=== PATIENT | male | born 1940 | race Caucasian/White ===

== ENCOUNTER 2024-04-07 13:24 | Inpatient (IN) | payer OTHER, SELFPAY ==
[2024-04-07] VITALS (9 sets, daily range): BP systolic 106–159; BP diastolic 54–129; BMI 28.4; BMI 27.7
[2024-04-07 08:54] LABS: % Basophils 0.3 % (0-2); % Immature Granulocytes 0.6 % (0-0.5); % Lymphocytes 19.4 % (20.5-51.1); % Neutrophils 67.7 % (42.2-75.2); Absolute Immature Granulocytes 0.1 10^3/uL (0-0.05); Absolute Lymphocytes 2.4 10^3/uL (1.2-3.4); Absolute Monocytes 1.5 10^3/uL (0.1-0.6); Absolute Neutrophils 8.3 10^3/uL (1.4-6.5); Hematocrit 46.3 % (39.0-52.0); Hemoglobin 16.1 g/dL (13.0-18.0); Mean Corp Hgb Conc. 34.8 g/dL (33.0-37.0); Mean Corpuscular Hgb 32.1 pg (27.0-31.0); Mean Corpuscular Volume 92.2 fL (80.0-94.0); Mean Platelet Volume 12.5 fL (7.4-10.4); Nucleated Red Blood Cells % 0 % (-); Platelet Count 163 10^3/uL (130-400); Red Blood Cell Count 5.02 10^6/uL (4.70-6.10); Red Cell Dist. Width 12.5 % (11.5-14.5); White Blood Cell Count 12.2 10^3/uL (4.8-10.8)
--- NOTE | 2024-04-07 09:07 | ED.GENMED ---
History of Present Illness
General
Chief Complaint: Weakness
Source: patient
Time Seen by Provider: 04/07/24 08:54
History of Present Illness
History of Present Illness:
83-year-old male presents to the emergency room for evaluation of weakness, fatigue, frequent falls. Patient began feeling unwell over the past 24 hours or so. Seems that he woke up yesterday not feeling well. His also has not been feeling
well and has flulike symptoms. 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 Patient attempted to drive to work yesterday but was pulled over by police due to driving erratically. The police made someone come pick him up. He went home and
had a fall in his bathroom that required his son to help him up. He was laid on the couch but again had a fall because his legs 'give out from under him'. He laid on the floor last night for an extended period of time until his son came this
morning and insisted he come to the hospital for evaluation. Patient denies any chest pain or shortness of breath. He does not believe he has a fever. He nor his has been tested for flu or COVID. He denies any nausea or vomiting. He admits
to decreased oral intake over the past 24 hours. No cough.
Phy Exam
Physical Exam
Physical Exam:
General: Awake, Alert, Oriented X3. No acute distress. Appears stated age, frail
Vitals: Afebrile, mildly tachycardic
Head: Atraumatic
Eyes: Pupils equal, EOMI
Throat: Airway intact, no exudates, dry mucosa
Neck: Trachea midline
Lungs: Clear and equal b/l
Heart: Regular rate, no murmurs
Abd: Soft, Nontender, No pulsatile mass
Neuro: Nonfocal
Skin: Warm, dry, no rash, seborrheic rash scalp
Extremities: pulses equal b/l, no edema
Course
Orders/Labs/Results
Orders:
Orders
04/07/24 08:37
Electrocardiogram (*1) Urgent
Reason for Study: Fatigue / Weakness
EKG- Treatment ONCE
04/07/24 08:43
Complete Blood Count/With Diff Urgent
04/07/24 09:05
Lactated Ringers [Lr] 1,000 ml IV BOLUS
CR Chest - 2 Views Urgent
Comment:
Reason For Exam: fatigue, frequent falls
04/07/24 09:06
CT Head W/o Iv Contrast Urgent
Comment:
Reason For Exam: frequent falls
04/07/24 09:07
Add On- LAB Urgent
Tests Added?: troponin
04/07/24 09:30
COVID-19 Antigen Urgent
Source: Nasal Swab
Influenza A+B Rapid Molecular Urgent
ANITHA Source: Nasal Swab
Specimen Description:
04/07/24 09:31
Comprehensive Metabolic Panel Urgent
Creatine Phosphokinase Urgent
Comment: ADD ON
04/07/24 10:35
Echo 2D MMode Color/Doppler [Echo 2D MMode Color/Doppler] Urgent
Reason for Study: ECG changes with prior bypass
Cardiology Consult: Walter Dash
04/07/24 10:43
Troponin I Routine
Comment: NEEDS TO BE COLLECTED
Urinalysis Reflex To Culture Urgent
Date Specimen was Collected: 04/07/24
Time Specimen was Collected: 09:07
Urine Microscopic Reflex Cult Urgent
Urine Culture Urgent
ANITHA Source: U
Specimen Description:
Date Specimen was Collected: 04/07/24
Time Specimen was Collected: 09:07
04/07/24 11:44
Aspirin Chewable [Low Strength Aspirin] 324 mg PO NOW STA
04/07/24 11:54
Electrocardiogram (*1) Urgent
Reason for Study: Fatigue / Weakness
EKG- Treatment ONCE
Insulin Aspart [NOVOLOG vial] 3 units SC NOW STA
04/07/24 12:00
0.9% Sodium Chloride 1000 ml [Nss] 1,000 ml IV 150 mls/hr
04/07/24 12:13
Add On- LAB Urgent
Tests Added?: creatinine kinase
04/07/24 12:14
Oseltamivir Phosphate [Tamiflu] 75 mg PO NOW STA
04/07/24 12:34
Admit/Transfer Patient As Directed
Co-Sign Provider:
Level of Care: Inpatient admission
Assign to:: Telemetry
Physician / Group: Nitza Winchester
Diagnosis: sepsis 2/2 Influenza
Reason for Telemetry: Chest Pain syndromes
Date to Stop Telemetry: 04/09/24
Time to Stop Telemetry: 11:00
Reason for Hospitalization: sepsis 2/2 Influenza
Expected length of stay greater than two midnights?: Yes
ELOS- Estimated Length of Stay in days: 3
I certify the patient meets the requirements for IP care: Yes
PRN Pain Medication Management As Directed
May give lesser potent ordered pain med per pt: Yes
preference::
Protocol:: Medication orders for pain may be administered in a
manner that supports deferring to patient preference
when the pt is:
- Requesting an ordered lesser potent pain medication.
Least to most potent pain medications are defined
as: acetaminophen < NSAID < tramadol < opioids
(morphine, oxycodone, hydromorphone).
- Requesting a lesser dose of the same medication IF
ORDERED.
- Requesting a less intrusive route of administration
if both routes are prescribed by the provider (PO <
IV).
04/07/24 12:36
Code Status As Directed
Resuscitation Status: Do not resuscitate
Reached after discussion with pt or family/Healthcare POA: Yes
04/07/24 12:37
DNR Bracelet Application ONCE
04/07/24 12:52
Heparin Protocol- PTT Orders As Directed
PTT per Heparin protocol: -Obtain CBC and baseline PTT - if not already collected.
-Obtain PTT 6 hours from start of infusion. Then, every 6 hours until 2 consecutive
PTT's are therapeutic. Then, PTT Daily.
-With each rate change, obtain PTT every 6 hours until 2 consecutive PTT's are
therapeutic. Then, PTT Daily.
Notify MD As Directed
Notify physician if: PTT is greater than or equal to 200.
04/07/24 13:00
PTT Urgent
Heparin 14539 Units/250 ml 25,000 units in 250 ml IV PER PROTOCOL
Weight to be used for heparin protocol in kilograms (kg):: 84.8
Protocol:: Cardiac Tx/Acute Coronary
PTT Goal Range to be used:: PTT 73 to 111 seconds
Order type:: Initial
INITIAL Infusion Dose (UNITS/KG/hr) & then follow protocol:: 12 units/kg/hr
Infusion Dose in UNITS/hr & then follow protocol (UNITS/hr):: 1,000
INFUSION RATE in mL/hr & then follow protocol (mL/hr):: 10
PTT less than or equal to 64 seconds:: Increase rate by 200 units/hr (+ 2 mL/hr)
PTT 64.1 to 72.9 seconds:: Increase rate by 100 units/hr (+ 1 mL/hr)
PTT 73 to 111 seconds:: Target Range. No change in rate.
PTT 111.1 to 130.9 seconds:: Decrease rate by 100 units/hr (- 1 mL/hr)
PTT 131 to 199.9 seconds:: HOLD for 1 hr. Then decrease rate by 200 units/hr (- 2 mL/hr)
PTT greater than or equal to 200 seconds:: HOLD for 2 hrs & Notify Provider. Then decrease by 200 units/hr (-
2 mL/hr)
Lab follow-up:: Each change, PTT q6h until 2 consecutive are therapeutic. Then PTT
daily.
04/07/24 14:23
Lactate Level [Lactic Acid] Urgent
Troponin I Q6H
04/07/24 14:45
Electrocardiogram (*1) Routine
Reason for Study: CAD
Cardiology Consult: Walter Dash
04/09/24 06:00
Complete Blood Count/No Diff IN AM
Comment: Notify MD if platelet count is <130,000 or decreases by 50% from baseline
04/09/24 11:00
DC Protocol for Telemetry ONCE
04/10/24 06:00
Complete Blood Count/No Diff IN AM
Comment: Notify MD if platelet count is <130,000 or decreases by 50% from baseline
04/11/24 06:00
Complete Blood Count/No Diff IN AM
Comment: Notify MD if platelet count is <130,000 or decreases by 50% from baseline
04/12/24 06:00
Complete Blood Count/No Diff IN AM
Comment: Notify MD if platelet count is <130,000 or decreases by 50% from baseline
04/13/24 06:00
Complete Blood Count/No Diff IN AM
Comment: Notify MD if platelet count is <130,000 or decreases by 50% from baseline
04/14/24 06:00
Complete Blood Count/No Diff IN AM
Comment: Notify MD if platelet count is <130,000 or decreases by 50% from baseline
04/15/24 06:00
Complete Blood Count/No Diff IN AM
Comment: Notify MD if platelet count is <130,000 or decreases by 50% from baseline
04/16/24 06:00
Complete Blood Count/No Diff IN AM
Comment: Notify MD if platelet count is <130,000 or decreases by 50% from baseline
Abnormal Lab Results
04/07/24 04/07/24 04/07/24
08:43 09:31 10:43
WBC 12.2 H 10^3/uL
(4.8-10.8)
MCH 32.1 H pg
(27.0-31.0)
MPV 12.5 H fL
(7.4-10.4)
Abs Immat Gran (auto) 0.1 H 10^3/uL
(0-0.05)
Absolute Neuts (auto) 8.3 H 10^3/uL
(1.4-6.5)
Absolute Monos (auto) 1.5 H 10^3/uL
(0.1-0.6)
Immature Gran % 0.6 H %
(0-0.5)
Lymphocytes % 19.4 L %
(20.5-51.1)
Monocytes % 12.0 H %
(1.7-9.3)
Carbon Dioxide 16 L mmol/L
(22-30)
BUN 24 H mg/dl
(9-20)
Glucose 330 H mg/dl
(70-99)
AST 217 H U/L
(17-59)
ALT 70 H U/L
(0-50)
Creatine Kinase 9753 H U/L
(55-170)
Troponin I 1.360 H* ng/ml
Ur Occult Blood Reflex 4+ A
(Negative)
Urine Bacteria (Reflex) Many A
(Negative)
Urine Glucose 4+ A
(Negative)
Urine Albumin (Reflex) 3+ A
(Neg - Trace)
POC Glucose
04/07/24
12:32
WBC
MCH
MPV
Abs Immat Gran (auto)
Absolute Neuts (auto)
Absolute Monos (auto)
Immature Gran %
Lymphocytes %
Monocytes %
Carbon Dioxide
BUN
Glucose
AST
ALT
Creatine Kinase
Troponin I
Ur Occult Blood Reflex
Urine Bacteria (Reflex)
Urine Glucose
Urine Albumin (Reflex)
POC Glucose 287 H mg/dl
(70-99)
04/07/24 08:43
04/07/24 09:31
Vital Signs
Initial and Last Documented VS:
Initial Vital Signs
Temp Pulse Resp BP Pulse Ox
98.1 F 103 16 125/83 98
04/07/24 08:35 04/07/24 08:35 04/07/24 08:35 04/07/24 08:35 04/07/24 08:35
Last Documented Vital Signs
Temp Pulse Resp BP Pulse Ox
98.1 F 94 17 127/72 94
04/07/24 08:35 04/07/24 11:00 04/07/24 11:00 04/07/24 11:00 04/07/24 11:00
MDM/Problems Addressed
Differential Diagnosis Includes:
UTI, pneumonia, influenza, COVID
MDM/Problems Addressed:
Patient presents with generalized weakness, lethargy. Symptoms began within the past 24 hours. Workup here shows mildly elevated white blood cell count. Chemistry show a mildly elevated anion gap with dehydration based on elevated BUN and based
on his physical exam suggesting significant dehydration. Patient's glucose elevated at 330. Small dose of insulin given to control elevated glucose. Patient's EKG shows an anterior wall KS with LVH. There may be some elevated ST segments
compared to EKG that we have on record here which is quite old. His presentation does not match that of a acute ST segment elevation KS. Therefore STEMI alert was not called. I discussed the patient's presentation EKG with cardiology. They came
to evaluate the patient. Patient be hospitalized for IV fluids, supportive care, further cardiac evaluation
*Radiology
Radiology exam reviewed: preliminary read by ED provider (No acute abnormality based on my chest x-ray) and radiology read reviewed
*Pulse Oximetry
Patient hypoxic: no
*EKG
Interpreted by ED Provider?: Yes
Heart Rate: 101
Rate: tachycardiac
Rhythm: sinus
QRS Pattern: left vent hypertrophy and other (Previous anterior wall KS)
Ischemia: other (ST changes noted in the anterior leads which do appear somewhat different than previous EKG. No reciprocal change)
*Critical Care Note
Total Time (30-74mins, 75-104mins- exclusive of procedures): 35 min
comment:
Critical care statement: A total of 35 minutes of critical care time was provided for this patient. This includes management of unstable vital signs, evaluation of the patient at bedside, reviewing the patient's pertinent medical records, discussion
with consultants, review of old EKGs and review of pertinent medical records. This time with separate from time utilized to perform the aforementioned documented procedures
ED Attending Note
-
Portions of this chart may have been created with voice recognition software.� Occasional wrong word or��sound alike� substitutions may have occurred due to the inherent limitations of voice recognition software.
Discharge Plan
Departure
Patient Disposition: Admit
Date of Disposition: 04/07/24
Time of Disposition: 11:47
Admit to: IVU
Presentation/result/management discussed w/ accepting MD/DO: Hospitalist
Condition: Serious
Discharge Problem:
Influenza A, Elevated troponin
Interventions
Interventions:
*Risk Screen - Suicide Last Done: 04/07/24 08:35
*Neglect/Abuse Screening Last Done: 04/07/24 08:35
ED- Cardiac Assessment Last Done: 04/07/24 11:03
ED- Neurological Assessment Last Done: 04/07/24 11:03
ED- Pulmonary Assessment Last Done: 04/07/24 11:03
[2024-04-07 09:53] LABS: ALT (SGPT) 70 U/L (0-50); AST (SGOT) 217 U/L (17-59); Albumin 4.3 g/dl (3.5-5.0); Alkaline Phosphatase 75 U/L (38-126); Blood Urea Nitrogen 24 mg/dl (9-20); Calcium 8.7 mg/dl (8.4-10.2); Carbon Dioxide 16 mmol/L (22-30); Chloride 102 mmol/L (98-107); Glucose 330 mg/dl (70-99); Potassium 4.4 mmol/L (3.5-5.1); Sodium 138 mmol/L (135-145); Total Bilirubin 1.2 mg/dl (0.2-1.3); Total Protein 6.8 g/dl (6.3-8.2); eGFR 59.63
[2024-04-07] MEDS: LR 1000 IV (09:55)
[2024-04-07 09:56] LABS: COVID-19 Antigen Negative (Negative)
--- NOTE | 2024-04-07 10:01 | CON.CAR ---
Consultation
Consultation Request
Requesting Provider: Dr. Ananda Hutchinson
Performing Provider: Dr. Walter Dash
Reason for Consultation: Abnormal EKG with troponin elevation
Medical History
-
Chief Complaint: Weakness and influenza A positive
History of Present Illness:
This is an 83-year-old gentleman with a prior history of coronary artery disease and coronary artery bypass grafting on 11/10/2008 with JEFFERSON-LAD, [id number]. He typically follows with Dr. Walter Campos and was last seen in the office several
months ago. He presents now with complaints of profound weakness. Mr. Hung was last seen by Dr. Campos several weeks ago and reported that he had a fall within a few weeks of that office visit. He appeared to be more unsteady with his gait.
He now presents with a 24-48-hour history of marked malaise. His is currently influenza A positive. He came to the emergency department after 911 was called by his son. He apparently had not been feeling that great yesterday but had driven
to work and was swerving the car all over the road. He was picked up by the police with concern of intoxication. He was taken to the police department and released with family members to home. At approximately 4:30 PM on the day prior to
admission he fell in the bathroom and was too weak to stand. His son was called and with a lot of assistance they were able to move him from the bathroom to a couch where he stayed for the remainder of the afternoon into the evening. At some point
nursing aides took him upstairs. At the top of the stairs he became so weak he fell to the ground and his actually brought him a pillow and blanket. He laid on the ground most of the night only because he was too weak. The next morning
family members were again called. With much assistance they were able to get the Mr. Deny hurtado down the stairs and onto a an ambulance gurney. He was brought to [facility] for further evaluation.
The patient denies any chest discomfort. He denies any cough cold or flulike symptoms although his is currently ill with influenza A and he test positive for influenza. He has not had much of an appetite. No nausea vomiting or diarrhea.
Subjective fevers per the son
-01/23/2023: Echo: LV: EF 53%. No WMA. Mild concentric LVH. RV: Low normal function, LA: Normal, RA: Normal, MV: Dense posterior MAC with trace MR, AV: Trace AI. Calcified and trileaflet. TV: Normal
-11/24/2019: Echo: LV: Normal size and function. EF 51%. Mild concentric LVH. RV: Normal, LA: Normal, RA: Normal, MV: No MR, AV: Thickened. No AI. TV: No TR
Laboratory data:
Troponin 1.36 ng/mL, CPK 9753
AST/ALT 217/70,
Glucose: 330, BUN/creat: 24/1.2, K: 4.4
WBC: 12.2, H/H: 16.1/46.3, Plts: 163,
Urine: Yello 4+ blood, Many bacteria
COVID (-)
Influenza A:
Past Medical History:
-Coronary artery disease with history of coronary artery bypass grafting in 2008
-Paroxysmal atrial fibrillation
-History of an atrial tachycardia
-Hypertension
-Remote history of stroke in 2019 with concern for cardioembolic etiology
-Prostate cancer
-Ambulatory dysfunction with recent falls
Review of Systems: Patient minimizes symptoms. He reports an overwhelming sense of of fatigue and leg weakness keeping him from walking. He denies any chest discomfort. No cough or flulike symptoms although his son reports some sweatiness when
they moved him from the bathroom floor yesterday afternoon. He refused to come to the emergency department at that time. No recent GI illness and specifically denies any nausea, vomiting, constipation, or diarrhea. He states that he has been
compliant with medications
Social History
Tobacco: Non-Smoker
Alcohol: None
Drug: None
Personal:
Living: With Family
Employment: Other (Still working at a significantly reduced)
Family History
Family History: Reviewed & Not Pertinent
Allergies / Home Medications
Allergy/AdvReac Type Severity Reaction Status Date / Time
No Known Allergies Allergy Verified 04/07/24 08:36
�Medication �Instructions �Recorded �Confirmed �Type
Fish Oil 1 tab DAILY 11/07/08 11/07/08 History
Multivitamin 1 tab DAILY 11/07/08 11/07/08 History
folic acid-vit B6-vit B12 2.5 1 tab PO DAILY 11/07/08 11/07/08 History
mg-25 mg-2 mg tablet (WesTab Max)
glyburide 5 mg tablet 5 mg PO DAILY 11/07/08 11/07/08 History
lisinopril 10 mg tablet 10 mg PO DAILY 11/07/08 11/07/08 History
metformin 500 mg tablet 500 mg PO BID 11/07/08 11/07/08 History
(Glucophage)
sitagliptin phosphate 100 mg 100 mg PO DAILY 11/07/08 11/07/08 History
tablet (Januvia)
tamsulosin 0.4 mg capsule 0.4 mg PO DAILY 11/07/08 11/07/08 History
Aspirin 162 mg PO DAILY 04/23/09 04/23/09 History
Centrum Silver DAILY 04/23/09 04/23/09 History
hydrocodone 5 mg-acetaminophen 325 1 ea PO Q6HPRN PRN pain #12 tabs 07/26/19 Rx
mg tablet ([place])
sennosides 8.6 mg-docusate sodium 1 tab-cap PO HS #7 tabs 04/16/22 Rx
50 mg tablet (Senna-S)
Review of Systems
-
History Source: Patient
Constitutional: Fatigue
EENT: No Symptoms
Respiratory: No Symptoms
Cardiac: No Symptoms
Abdomen/GI: No Symptoms
: No Symptoms
Skin: No Symptoms
Neurological: No Symptoms and Other (Profound weakness but nothing focal)
Physical Exam
Vital Signs
Temp Pulse Resp BP Pulse Ox
98.1 F 103 16 125/83 98
04/07/24 08:35 04/07/24 08:35 04/07/24 08:35 04/07/24 08:35 04/07/24 08:35
Lab Results
04/07/24 08:43
04/07/24 09:31
GEN: Patient was seen lying in bed. He is conversant and appears appropriate and oriented x 3. No acute distress
HEENT: NC/AT, sclera are anicteric
NECK: Supple. JVP was difficult to assess
LUNGS: Clear anterior laterally
CV: Regular rate and rhythm. Normal S1/S2. Murmur: Soft murmur noted at upper sternal border and lower left sternal border
ABD : Soft, NT, ND, Bowel sounds are present.
EXT: No CCE
NEURO: No focal neurologic deficits
Impression / Plan
-
IMPRESSION:
-Elevated troponin with no chest discomfort: Likely Non ME troponin elevation.
-Known coronary artery disease with prior history of coronary artery bypass grafting in 2008
-Influenza A
-Ambulatory dysfunction. He has fallen and was on the ground for much of yesterday. He was confused and pulled over by police when driving to work after he was noted to be swerving all over the road. At home was so fatigued that he could not walk
any further and laid down on the ground until his son called 911 this morning. CPKs are elevated.
-Diabetes
RECOMMENDATION
-Trend serial troponins
-Will obtain echocardiogram
-Further management decisions will be made after the echocardiogram is completed.
-He is influenza A positive. I am not sure that this accounts for his profound weakness. He had been found swerving all over the road and was actually stopped by police under the suspicion of intoxication. He was released to family member and was
so weak that he spent much of his day yesterday and last evening on the ground. He did have a fall prior to this within a few weeks of seeing Dr. Campos in the office. Will need to review medications and blood pressures while he is here in the
hospital.
Data Reviewed
-
EKG: Tracing Personally Visualized and interpreted
Ultrasound: Image Personally Visualized and interpreted
Labs: Labs Reviewed by me
Old Records: Reviewed
[2024-04-07 11:02] LABS: Urine Albumin 3+ (Neg - Trace); Urine Bilirubin Negative (Negative); Urine Character Clear (Clear); Urine Color Yellow; Urine Glucose 4+ (Negative); Urine Leukocyte Negative (Negative); Urine Nitrite Negative (Negative); Urine Specific Gravity 1.025 (<1.030); Urine Urobilinogen Negative (Neg - 1+)
[2024-04-07 11:13] LABS: Urine Occult Blood 4+ (Negative)
[2024-04-07 11:23] LABS: Urine Bacteria Many (Negative); Urine Red Blood Cell 0-2 /HPF (0-2)
[2024-04-07 11:24] LABS: Urine Granular Cast 0-2 /LPF (0); Urine Hyaline Cast 0-2 /LPF (0-2); Urine Squamous Cell 0-2 /LPF (Few)
[2024-04-07] MEDS: LOW STRENGTH ASPIRIN 324 MG PO (11:53)
--- NOTE | 2024-04-07 12:07 | HPS.HSE ---
Family Physician
-
Family Physician: Walter Goodman
Chief Complaint
-
weakness and cough
History of Present Illness
Mr. Aubrey Hung is a 83 yo man with hx CAD s/p CABG 2008 and PCI, robotic prostatectomy 2015, HTN, HLD presents to the ER with fatigue, weakness and falls.
Symptoms started yesterday morning. He attempted to drive to work but was pulled over by police for driving erratically. Per patient he was avoiding pot holes. He was asked to be picked up and after arriving home he had a fall stating his 'legs
gave out from under him'. He was climbing up the stairs and once he got to the top he fell. He did not hit his head. He came to the ER this morning.
He denies fevers. + cough/congestion. No chest pain. No shortness of breath. No nausea/vomiting/diarrhea. He has had decreased oral intake stating last thing he took in was chocolate milk last night.
His has similar symptoms. 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
Medical History
Past Medical History
Past Medical History: Reports Other (x CAD s/p CABG 2008 and PCI, robotic prostatectomy 2015, HTN, HLD)
Past Surgical History: Reports Cardiac
Social History
Tobacco: Other (former cigar use)
Alcohol: None
Family History
Family History: Not pertinent
Allergies / Home Medications
Allergies reflects when Allergies were last updated in [email or web address].
Home Medications with original date entered in [email or web address]
Allergy/Medication List:
Allergies
Allergy/AdvReac Type Severity Reaction Status Date / Time
No Known Allergies Allergy Verified 04/07/24 08:36
Home Medications
glyburide 5 mg tablet 5 mg PO BID@0800,1700 11/07/08
Brain Supplement 1 dose PO DAILY 04/07/24
apixaban 5 mg tablet (Eliquis) 5 mg PO BID 04/07/24
atorvastatin 80 mg tablet 80 mg PO DAILY 04/07/24
bisacodyl 5 mg tablet,delayed release (Dulcolax (bisacodyl)) 10 mg PO DAILYPRN PRN constipation 04/07/24
carvedilol 6.25 mg tablet 6.25 mg PO BID 04/07/24
dulaglutide 4.5 mg/0.5 mL subcutaneous pen injector (Trulicity) 4.5 mg SC TU 04/07/24
fexofenadine 60 mg tablet 60 mg PO DAILY 04/07/24
metformin 500 mg tablet,extended release 24 hr 500 mg PO BID@0800,1700 04/07/24
therapeutic multivitamin 1 tab PO DAILY 04/07/24
Review of Systems
-
History Source: Patient
A 12 point ROS was completed and negative except as noted: Yes
Physical Exam
Vital Signs
Vital Signs
Temp Pulse Resp BP Pulse Ox
98.1 F 94 17 127/72 94
04/07/24 08:35 04/07/24 11:00 04/07/24 11:00 04/07/24 11:00 04/07/24 11:00
Physical Exam
General: No Apparent Distress and Conversant
HEENT: PERRLA
Respiratory: Clear; No Wheezes or Rales
Cardiac: S1/S2, Regular Rhythm and Murmur
GI: Soft and Non Tender
Musculoskeletal: No Edema
Skin: Warm and Dry; No Rash
Neuro: AO x 3
Psych: Calm
Laboratory Results
-
04/07/24 08:43
04/07/24 09:31
Laboratory Results
Total Bilirubin 1.2 mg/dl (0.2-1.3) 04/07/24 09:31
AST 217 U/L (17-59) H 04/07/24 09:31
ALT 70 U/L (0-50) H 04/07/24 09:31
Alkaline Phosphatase 75 U/L (38-126) 04/07/24 09:31
Troponin I 1.360 ng/ml H* 04/07/24 10:43
Data Reviewed
-
Diagnostic Radiology: Report Reviewed by me
Lab Data: Labs Reviewed by me
Impression/Plan
-
Mr. Aubrey Hung is a 83 yo man with hx CAD s/p CABG 2008 and PCI, robotic prostatectomy 2015, HTN, HLD presents to the ER with fatigue, weakness and falls.
Triage VS: T 98.1, P103, RR 16, BP 125/83, SpO2 98%
LABS: WBC 12.2, Hg 16.1, PLT 163, Na 138, K+ 4.4, CO2 12, BUN 24, Cr 1.2, glucose 330, T. Bili 1.2, AST 217, ALT 70
MAR: Asa 324, insulin 3 units, LR 1L bolus, NS @ 150
Covid negative
Influenza Positive
CXR
IMPRESSION:
No acute cardiopulmonary process.
HEAD CT
IMPRESSION:
There are no acute intracranial abnormalities.
There is old 9 mm lacunar infarct involving the neck of the caudate and genu of the internal capsule on the right
There is moderate diffuse cortical atrophy with moderate nonspecific white matter changes as described above.
Influenza A
Sepsis 2/2 Above
Weakness 2/2 Above
-admit to telemetry
-start Tamilfu (decrease dosing tomorrow if necessary based on kidney function)
-no e/o superimposed pneumonia
-NS @ 100
-trend Lactate
-PT/OT
likely non-Ischemic [place] Troponin Elevation
-patient without chest pain
-TTE ordered by cardiology
-trend Troponin
-*patient did not take his Eliquis this AM, will start heparin gtt without bolus
-formal Cardiology consult
Paroxysmal Atrial Fibrillation
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
-hold Eliquis and start heparin gtt as above
Elevated Liver Enzymes
-add on CK
-likely in setting of flu/sepsis
-trend
CAD s/p CABG
-heparin gtt as above
-hold statin with elevated liver enzymes
Hyperglycemia
Diabetes
-s/p aspart in ER
-F/U A1c tomorrow AM
-hold [employer] SALES [employer] Metformin, Trulicity
-[employer] Glyburide 5mg PO BID
-ISS low
-diabetic diet
Essential HTN
-rn clinical trials Coreg with hold parameters
Hyperlipidemia
-hold Statin as above
DVT PPx - heparin gtt
DNR - confirmed on admission
76 minutes spent on patient care
[2024-04-07 12:33] LABS: Glucose - Point of Care 287 mg/dl (70-99)
[2024-04-07] MEDS: NOVOLOG vial 3 UNITS SC (12:33)
[2024-04-07 13:26] LABS: APTT 32.4 Sec (23.4-35.0)
[2024-04-07] MEDS: TAMIFLU 75 MG PO (13:27)
[2024-04-07] MEDS: NSS 1000 IV ×2 (13:29→17:58)
[2024-04-07] MEDS: HEPARIN 25000 UNITS/250 ML IV (13:33)
[2024-04-07 13:35] LABS: Creatine Phosphokinase 9753 U/L (55-170)
[2024-04-07 15:28] LABS: Lactic Acid 1.7 mmol/L (0.7-2.0)
[2024-04-07] MEDS: NOVOLOG FLEXPEN-LOW RESISTANCE 1 UNITS SC (19:59)
[2024-04-07] MEDS: MICRONASE PO (20:06)
[2024-04-07 20:07] LABS: Glucose - Point of Care 181 mg/dl (70-99)
[2024-04-07] MEDS: COREG 6.25 MG PO (20:28)
[2024-04-07] MEDS: TAMIFLU 30 MG PO (20:28)
[2024-04-07 20:41] LABS: APTT 82.5 Sec (23.4-35.0)
[2024-04-07 20:56] LABS: Troponin I 0.949 ng/ml
[2024-04-08] VITALS (9 sets, daily range): BP systolic 112–140; BP diastolic 54–89; PULSE 69–84; O2SAT 93
[2024-04-08 03:55] LABS: % Basophils 0.1 % (0-2); % Immature Granulocytes 0.3 % (0-0.5); % Lymphocytes 32.3 % (20.5-51.1); % Neutrophils 56.3 % (42.2-75.2); Absolute Lymphocytes 2.8 10^3/uL (1.2-3.4); Absolute Neutrophils 4.8 10^3/uL (1.4-6.5); Hematocrit 40.2 % (39.0-52.0); Mean Corp Hgb Conc. 34.8 g/dL (33.0-37.0); Mean Platelet Volume 12.5 fL (7.4-10.4); Nucleated Red Blood Cells % 0 % (-); Platelet Count 128 10^3/uL (130-400); Red Blood Cell Count 4.37 10^6/uL (4.70-6.10); Red Cell Dist. Width 12.4 % (11.5-14.5); White Blood Cell Count 8.6 10^3/uL (4.8-10.8)
[2024-04-08 04:07] LABS: APTT 100.3 Sec (23.4-35.0)
[2024-04-08 04:34] LABS: Troponin I 0.671 ng/ml
[2024-04-08 05:40] LABS: ALT (SGPT) 74 U/L (0-50); AST (SGOT) 170 U/L (17-59); Albumin 3.5 g/dl (3.5-5.0); Alkaline Phosphatase 77 U/L (38-126); Blood Urea Nitrogen 28 mg/dl (9-20); Calcium 8.8 mg/dl (8.4-10.2); Carbon Dioxide 20 mmol/L (22-30); Chloride 104 mmol/L (98-107); Direct Bilirubin 0.4 mg/dl (0.0-0.4); Estimated Creatinine Clearance 50 ml/min; Glucose 255 mg/dl (70-99); Magnesium 2.1 mg/dl (1.6-2.3); Potassium 3.9 mmol/L (3.5-5.1); Sodium 135 mmol/L (135-145); Total Bilirubin 1.2 mg/dl (0.2-1.3); eGFR > 60.00
[2024-04-08 07:06] LABS: Glucose - Point of Care 258 mg/dl (70-99)
--- NOTE | 2024-04-08 08:05 | W.PN.HOSP.TC ---
Addendum entered and electronically signed by Jim Brandon MD 04/08/24 15:26:
Influenza A
-Continue Tamiflu x 5 days
-Antitussive
-Antipyretic
NSTEMI
-Trop elevation now downtrending
-2d echo with wma - hypokinentic/akinetic gutiérrez
-Stop eliquis
-Start hep gtt
-LHC on Thursday (04/11)
-Tele monitor
-Cards
Acute rhabdo secondary to flu A
-IV fluids
-Daily CK
-PT OT
Transaminitis
-Secondary to rhabdo expect to improve follows LFTs
Cad s/p CABG
-hep gtt
-hold statin due to transaminitis
DM c/b hyperglycemia
-A1c 9.1
-Long and short acting insulin
-Accuchecks
-BG 140-180
-CCdiet
CVA
-On statin and eliquis as an outpatient
-Both held for various reasons
--1) Eliquis held for Hep gtt
--2) Statin held for transaminitis
Original Note:
Today's Communication/Plan
-
;/
Assessment / Plan
Assessment / Plan
Assessment/plan
#Sepsis POA secondary to influenza virus
-Continue renally dosed Tamiflu
-Lactate normal
-Chest x-ray�no acute cardiopulmonary process
-PT/OT
#Nonischemic myocardial injury
-No episodes of chest pain
-Echocardiogram- The apical gutiérrez are severely hypokinetic-akinetic with an estimated ejection fraction of 40-45%.
-Troponin peaked
-Cardiology following
#CAD s/p CABG 2008 and PCI
-Echo 04/07- When compared to the most recent echocardiogram from 11/24/2019, a new regional wall motion abnormality is noted at the left ventricular apex which is severely hypokinetic to akinetic. The estimated ejection fraction is 40-45%.
-Cardiology following
-With new findings on echo, plan for cardiac catheterization 04/11
-Heparin gtt
#Paroxysmal atrial fibrillation
-Continue Coreg
-Hold Eliquis, heparin gtt
#Rhabdomyolysis
#Transaminitis
-Etiology likely in the setting of influenza viral infection
-Trend LFTs
#T2DM
-HbA1c 9.1
-Start NovoLog 5 units, Lantus 10 units
-Coverage with sliding scale insulin
-Hold home oral agents
#Essential hypertension
-Continue on Coreg
#Hyperlipidemia
-Hold statin due to elevated LFTs
DVT prophylaxis-heparin gtt
CODE STATUS-DNR
Anticipated Discharge: > 48 hours
Subjective/Interval History
-
Patient seen and examined at bedside. He denied acute complaints of chest pain, shortness of breath, palpitation, abdominal tenderness. He denies myalgia, arthralgia. He denies cola colored urine. He states his lower extremity weakness has been
present since a traumatic incident that happened a few years ago after a horse kicked his legs. Overall today, he has no acute complaints
Objective Data
-
Labs:
Laboratory Results
04/07/24 04/08/24
20:17 03:43
WBC 8.6
Hgb 14.0
Hct 40.2
Plt Count 128 L D
APTT 82.5 H 100.3 H
Sodium 135
Potassium 3.9
Chloride 104
Carbon Dioxide 20 L
BUN 28 H
Creatinine 1.1
Glucose 255 H
Calcium 8.8
Total Bilirubin 1.2
AST 170 H
ALT 74 H
Alkaline Phosphatase 77
Vital Signs:
Vital Signs
Temp Pulse Resp BP Pulse Ox
98.1 F 90 17 132/72 97
04/08/24 03:30 04/08/24 03:30 04/08/24 03:30 04/08/24 03:30 04/08/24 03:30
I&O
04/07/24 04/08/24 04/09/24
06:59 06:59 06:59
Intake Total 1600 / 1600
Output Total 600 / 600
Balance 1000 / 1000
Review of Systems
-
All other systems: Reviewed and negative (Except as documented)
Physical Exam
-
General: Well Developed, Well Nourished and No Apparent Distress
Respiratory: Clear to Auscultation
Cardiac: Regular Rhythm and S1/S2
GI: Soft, Nontender, Nondistended and Normal Bowel Sounds
Musculoskeletal: No Edema
Neuro: Awake and Alert
[2024-04-08 09:09] LABS: Creatine Phosphokinase 5910 U/L (55-170)
[2024-04-08] MEDS: NSS 1000 IV (09:20)
[2024-04-08] MEDS: ELIQUIS 5 MG PO (09:20)
[2024-04-08] MEDS: MICRONASE 5 MG PO (09:21)
[2024-04-08] MEDS: COREG 6.25 MG PO ×2 (09:21→20:43)
[2024-04-08] MEDS: CLARITIN 10 MG PO (09:21)
[2024-04-08] MEDS: TAMIFLU 30 MG PO ×2 (09:21→20:44)
[2024-04-08] MEDS: LOW STRENGTH ASPIRIN 81 MG PO (09:21)
[2024-04-08] MEDS: NOVOLOG FLEXPEN-LOW RESISTANCE 3 UNITS SC (09:21)
[2024-04-08] MEDS: LIPITOR PO (09:26)
--- NOTE | 2024-04-08 09:27 | W.PN.CARDCBS ---
Today's Communication / Plan
-
Cardiac catheterization on Thursday
Impression / Plan
-
IMPRESSION:
Influenza A
CAD status post CABG
Non-ST segment elevation [place] versus non-ACS troponin elevation versus Takotsubo syndrome
Paroxysmal atrial fibrillation and atrial tachycardia
Hypertension
History of stroke 2019
Prostate cancer
Hypercholesterolemia
Mild rhabdomyolysis
Echo 04/07/2024: EF 40-45%, apex is hypo to akinetic, normal RV, normal atria, mild mitral regurgitation, aortic sclerosis, normal pulmonary artery pressure, apical wall motion abnormality is new and was 50%
Plan:
At present he is recovering from his influenza A, and he looks well from that standpoint.
His cardiac exam is relatively unremarkable at this time. His troponin peaked at only approximately 1.6.
However, he has a clear-cut new wall motion abnormality compared to his prior echo with an EF that is now 40 to 45% and previously had been 50%. In addition, he has dramatic EKG changes despite the presence of an intraventricular conduction
delay/left bundle branch block.
It is conceivable that this is Takotsubo but with 15-year-old bypass grafts, it is also possible that his coronary artery anatomy has changed dramatically.
He is currently on aspirin and apixaban. Apixaban to be discontinued and will start heparin.
Continue carvedilol.
Clinical summary 83-year-old man with remote CABG in 2008 admitted with influenza A, weakness and malaise, CPK is 9750 after laying on the floor with troponin of 1.36 and AST of 217, has history of paroxysmal A-fib and atrial tachycardia with remote
CVA, hypertension and prostate cancer. His ejection fraction has dropped from 50% to 40-45% and he has a new apical wall motion abnormality
Progress Note - Clinical Exercise Specialist
Subjective
Date of Service: April 08, 2024:
Medications: Aspirin 81 mg a day, Claritin, glipizide, carvedilol 6.25 twice daily, apixaban 5 mg twice daily, atorvastatin 80 mg a day, Tamiflu
124/74, pulse 83, resp rate 18, afebrile, weight is 85 kg, stable, head neck exam unremarkable, lungs are clear, regular rate and rhythm, mild MR, abdomen benign, extremities without clubbing cyanosis or edema
EKG sinus rhythm, left bundle branch block, deep anterior T wave changes, PVCs, left axis deviation, prolonged QT
Hemoglobin is 14 white count is 8.6, platelets are 128, BUN and creatinine 28 and 1.1, peak troponin was 1.36, now 0.671, CPK has dropped to 5910
Chest x-ray shows no active disease
Objective
Labs:
04/08/24 03:43
04/08/24 03:43
Labs
Hgb 14.0 g/dL (13.0-18.0) 04/08/24 03:43
Hct 40.2 % (39.0-52.0) 04/08/24 03:43
Plt Count 128 10^3/uL (130-400) L D 04/08/24 03:43
APTT 100.3 Sec (23.4-35.0) H 04/08/24 03:43
Sodium 135 mmol/L (135-145) 04/08/24 03:43
Potassium 3.9 mmol/L (3.5-5.1) 04/08/24 03:43
BUN 28 mg/dl (9-20) H 04/08/24 03:43
Creatinine 1.1 mg/dL (0.7-1.3) 04/08/24 03:43
Glucose 255 mg/dl (70-99) H 04/08/24 03:43
Troponins
04/07/24 04/07/24 04/07/24
10:43 14:23 20:17
Troponin I 1.360 H* 1.130 H* 0.949 H*
04/08/24
03:43
Troponin I 0.671 H* D
Vital Signs and I&O:
Vital Signs
Temp Pulse Resp BP Pulse Ox
36.7 C 83 18 124/74 95
04/08/24 07:07 04/08/24 07:07 04/08/24 07:07 04/08/24 07:07 04/08/24 07:07
Vital Signs
Temp Pulse Resp BP Pulse Ox
36.7 C 83 18 124/74 95
04/08/24 07:07 04/08/24 07:07 04/08/24 07:07 04/08/24 07:07 04/08/24 07:07
Intake & Output
04/06/24 04/07/24 04/08/24 04/09/24
07:59 07:59 07:59 07:59
Intake Total 1600 / 1600
Output Total 600 / 600
Balance 1000 / 1000
Physical Exam
Physical Exam
See above
[2024-04-08 10:05] LABS: Glycohemoglobin (HgbA1c) 9.1 % (4.0-5.6)
[2024-04-08 10:53] LABS: Amphetamines Negative (Negative); Barbiturates Negative (Negative); Benzodiazepines Negative (Negative); Buprenorphine Negative (Negative); Cocaine Negative (Negative); Marijuana Negative (Negative); Methadone Negative (Negative); Methamphetamines Negative (Negative); Opiates Negative (Negative); Phencyclidine Negative (Negative); Tricyclic Antidepressants Negative (Negative)
[2024-04-08 10:58] LABS: Hematocrit 39.9 % (39.0-52.0); Hemoglobin 13.8 g/dL (13.0-18.0); Mean Corp Hgb Conc. 34.6 g/dL (33.0-37.0); Mean Corpuscular Hgb 32.3 pg (27.0-31.0); Mean Corpuscular Volume 93.4 fL (80.0-94.0); Mean Platelet Volume 11.9 fL (7.4-10.4); Platelet Count 128 10^3/uL (130-400); Red Blood Cell Count 4.27 10^6/uL (4.70-6.10); Red Cell Dist. Width 12.6 % (11.5-14.5); White Blood Cell Count 7.2 10^3/uL (4.8-10.8)
[2024-04-08 11:15] LABS: APTT 62.1 Sec (23.4-35.0)
[2024-04-08] MEDS: HEPARIN 25000 UNITS/250 ML IV (11:47)
--- NOTE | 2024-04-08 12:17 | PTCARENOTE ---
this nurse came in to pt on heparin gtt- running therapeutic at 10ml/hr. gtt was discontinued an eliquis restarted. EKG and orthos done at bedside by pct, and cardiology came by. heparin restarted this afternoon as patient is to go for cath on
thursday. eliquis back on hold. ptt resulted at 62.1 so gtt increased to 11ml/hr. will continue to monitor and ptt recheck added per protocol.
[2024-04-08 13:06] LABS: Glucose - Point of Care 399 mg/dl (70-99)
[2024-04-08] MEDS: NOVOLOG FLEXPEN-LOW RESISTANCE SC (14:29)
--- NOTE | 2024-04-08 16:38 | CM ---
Patient seen at bedside
IA completed
Lives in a multi story home with , 3 steps to enter, flight to bed/bath
PLOF: ambulates with cane
DME: cane, walker
Denies HH/states rehab in past does not recall
PT rec HH
Options discussed & prefers [facility]
Referral entered in [facility]
PCP: Walter Goodman
Pharmacy: [facility] [place]
PLAN: Home, [facility] when medically stable
[2024-04-08 17:01] LABS: Glucose - Point of Care 352 mg/dl (70-99)
[2024-04-08] MEDS: NOVOLOG FLEXPEN-LOW RESISTANCE 4 UNITS SC (17:10)
[2024-04-08] MEDS: NOVOLOG FLEXPEN 5 UNITS SC (17:11)
[2024-04-08 18:53] LABS: APTT 125.2 Sec (23.4-35.0)
[2024-04-08 21:50] LABS: Glucose - Point of Care 135 mg/dl (70-99)
[2024-04-08] MEDS: LANTUS SC (22:00)
[2024-04-09 01:40] LABS: APTT 116.9 Sec (23.4-35.0)
[2024-04-09 02:58] VITALS: BP 129/76
--- NOTE | 2024-04-09 05:00 | PTCARENOTE ---
Bed alarm went off. Found patient on the side of the bed trying to get to the bathroom. Assisted patient to the bathroom. Re-oriented patient to call for all transfers. Patient verbalized an understanding. Patient back in bed. Bed alarm re-set.
[2024-04-09 07:15] LABS: Glucose - Point of Care 145 mg/dl (70-99)
[2024-04-09] MEDS: NOVOLOG FLEXPEN-LOW RESISTANCE SC (07:18)
[2024-04-09 07:45] VITALS: BP 134/69
[2024-04-09 07:58] LABS: APTT 88.9 Sec (23.4-35.0)
[2024-04-09] MEDS: LOW STRENGTH ASPIRIN 81 MG PO (08:28)
[2024-04-09] MEDS: TAMIFLU 30 MG PO ×2 (08:28→19:07)
[2024-04-09] MEDS: NOVOLOG FLEXPEN 5 UNITS SC ×2 (08:29→13:37)
[2024-04-09] MEDS: CLARITIN 10 MG PO (08:29)
[2024-04-09] MEDS: COREG 6.25 MG PO ×2 (08:29→19:08)
[2024-04-09 09:12] LABS: ALT (SGPT) 75 U/L (0-50); AST (SGOT) 129 U/L (17-59); Albumin 3.9 g/dl (3.5-5.0); Alkaline Phosphatase 78 U/L (38-126); Blood Urea Nitrogen 22 mg/dl (9-20); Calcium 8.7 mg/dl (8.4-10.2); Carbon Dioxide 21 mmol/L (22-30); Chloride 105 mmol/L (98-107); Estimated Creatinine Clearance 55 ml/min; Glucose 162 mg/dl (70-99); Potassium 3.7 mmol/L (3.5-5.1); Sodium 139 mmol/L (135-145); Total Bilirubin 1.3 mg/dl (0.2-1.3); Total Protein 6.7 g/dl (6.3-8.2); eGFR > 60.00
--- NOTE | 2024-04-09 10:00 | W.PN.CARDCBS ---
Today's Communication / Plan
-
Maintain IV heaprin
Plan for cath on Tuesday 04/11
Impression / Plan
-
IMPRESSION:
Influenza A
CAD status post CABG
Non-ST segment elevation [place] versus non-ACS troponin elevation versus Takotsubo syndrome
Paroxysmal atrial fibrillation and atrial tachycardia
Hypertension
History of stroke 2019
Prostate cancer
Hypercholesterolemia
Mild rhabdomyolysis
Abnormal LFTs
Echo 04/07/2024: EF 40-45%, apex is hypo to akinetic, normal RV, normal atria, mild mitral regurgitation, aortic sclerosis, normal pulmonary artery pressure, apical wall motion abnormality is new and was 50%
Plan:
At present he is recovering from his influenza A, and he looks well from that standpoint.
Acute vs subacute NSTEMI
He is pain free
ECG with ant-lat ischemia
Initial troponin value 1.36 and subsequently declining
LAD distribution new wall motion abnormality on echocardiogram this admission
He was initially on aspirin and apixaban (for PAF) and on 04/08/24 Apixaban was stopped, heparin started.
Plan for coronary angiography on April 11
Continue carvedilol 6.25 mg BID
Continue atorvastatin 80 mg daily
Continue asa 81 mg daily.
Regarding PAF, remains in SR. Currently on IV Heparin, eventually transition back to apixaban 5 mg BID for AF related thromboembolic risk reduction
Essential HTN, BP well controlled. Continue carvedilol 6.25 mg BID
Mild JASBIR, renal function improved
Discussed with patient and his two sons at bedside, all questions answered and all in agreement for cath on Thursday
Total time 50 minutes
Clinical summary 83-year-old man with remote CABG in 2008 admitted with influenza A, weakness and malaise, CPK is 9750 after laying on the floor with troponin of 1.36 and AST of 217, has history of paroxysmal A-fib and atrial tachycardia with remote
CVA, hypertension and prostate cancer. His ejection fraction has dropped from 50% to 40-45% and he has a new apical wall motion abnormality
Progress Note - Railway Switchman
Subjective
Date of Service: April 09, 2024
No CP or SOB, overall tells me he feels 'better'
Objective
Labs:
04/08/24 10:45
04/09/24 07:32
Labs
Hgb 13.8 g/dL (13.0-18.0) 04/08/24 10:45
Hct 39.9 % (39.0-52.0) 04/08/24 10:45
Plt Count 128 10^3/uL (130-400) L 04/08/24 10:45
APTT 88.9 Sec (23.4-35.0) H 04/09/24 07:32
Sodium 139 mmol/L (135-145) 04/09/24 07:32
Potassium 3.7 mmol/L (3.5-5.1) 04/09/24 07:32
BUN 22 mg/dl (9-20) H 04/09/24 07:32
Creatinine 1.0 mg/dL (0.7-1.3) 04/09/24 07:32
Glucose 162 mg/dl (70-99) H 04/09/24 07:32
Troponins
04/07/24 04/07/24 04/07/24
10:43 14:23 20:17
Troponin I 1.360 H* 1.130 H* 0.949 H*
04/08/24
03:43
Troponin I 0.671 H* D
Vital Signs and I&O:
Vital Signs
Temp Pulse Resp BP Pulse Ox
97.9 F 72 16 134/69 94
04/09/24 07:45 04/09/24 08:29 04/09/24 07:45 04/09/24 08:29 04/09/24 07:45
Vital Signs
Temp Pulse Resp BP Pulse Ox
97.9 F 72 16 134/69 94
04/09/24 07:45 04/09/24 08:29 04/09/24 07:45 04/09/24 08:29 04/09/24 07:45
Intake & Output
04/07/24 04/08/24 04/09/24 04/10/24
06:59 06:59 06:59 06:59
Intake Total 1600 / 1600 1840 / 1840
Output Total 600 / 600 300 / 300
Balance 1000 / 1000 1540 / 1540
Physical Exam
Physical Exam
Well appearing, no distress
RRR, Nl S1 and S2, no S3 or S4, 1/6 AHSM and no rubs
CTA b/l
Trace pre-tibial edema b/l
[2024-04-09 11:00] VITALS: BP 115/76
[2024-04-09 11:09] LABS: Glucose - Point of Care 270 mg/dl (70-99)
--- NOTE | 2024-04-09 11:13 | W.PN.HOSP.TC ---
Today's Communication/Plan
-
Assessment / Plan
Assessment / Plan
NAD
Scleral Anicteric
MMM
No JVD
CTABL
RRR, S1/S2 BRIAN 1/ right upper sternal border
Soft, NT, ND, BS+
Warm, Dry
AAOx3
Calm
Influenza A
-Continue Tamiflu x 5 days
-Antitussive
-Antipyretic
NSTEMI
-Trop elevation now downtrending
-2d echo with wma - hypokinentic/akinetic gutiérrez
-Stop eliquis
-Start hep gtt
-LHC on Thursday (04/11)
-Tele monitor
-Cards
Acute rhabdo secondary to flu A
-IV fluids
-Daily CK
-PT OT
Transaminitis
-Secondary to rhabdo expect to improve follows LFTs
Cad s/p PCI x5 and CABG
-hep gtt
-hold statin due to transaminitis
DM c/b hyperglycemia
-A1c 9.1
-Long and short acting insulin
-Accuchecks
-BG 140-180
-CCdiet
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
-Would consider starting low dose ACEi post Cath for renoprotective properities
-Will check UCr:Protein ratio
CVA
-On statin and eliquis as an outpatient
-Both held for various reasons
--1) Eliquis held for Hep gtt
--2) Statin held for transaminitis
Anticipated Discharge: > 48 hours
Subjective/Interval History
-
Date of Service: April 09, 2024
Seen and examined. No new complaints. No acute overnight events.
Both sons at bedside updated
In good spirits
Objective Data
-
Labs:
Laboratory Results
04/09/24 04/09/24 04/09/24
01:19 06:00 07:32
APTT 116.9 H Cancelled 88.9 H
Sodium 139
Potassium 3.7
Chloride 105
Carbon Dioxide 21 L
BUN 22 H
Creatinine 1.0
Glucose 162 H
Calcium 8.7
Total Bilirubin 1.3
AST 129 H
ALT 75 H
Alkaline Phosphatase 78
04/09/24
13:30
APTT Pending
Sodium
Potassium
Chloride
Carbon Dioxide
BUN
Creatinine
Glucose
Calcium
Total Bilirubin
AST
ALT
Alkaline Phosphatase
Vital Signs:
Vital Signs
Temp Pulse Resp BP Pulse Ox
97.9 F 72 16 134/69 96
04/09/24 07:45 04/09/24 08:29 04/09/24 07:45 04/09/24 08:29 04/09/24 11:01
I&O
04/08/24 04/09/24 04/10/24
06:59 06:59 06:59
Intake Total 1600 / 1600 1840 / 1840
Output Total 600 / 600 300 / 300
Balance 1000 / 1000 1540 / 1540
[2024-04-09] MEDS: NOVOLOG FLEXPEN-LOW RESISTANCE 3 UNITS SC (13:37)
[2024-04-09] MEDS: HEPARIN 25000 UNITS/250 ML IV (13:43)
[2024-04-09 13:46] LABS: APTT 78.1 Sec (23.4-35.0)
[2024-04-09 15:00] VITALS: BP 125/65
[2024-04-09 18:04] LABS: Glucose - Point of Care 206 mg/dl (70-99)
[2024-04-09] MEDS: NOVOLOG FLEXPEN-LOW RESISTANCE 2 UNITS SC (18:16)
[2024-04-09] MEDS: NOVOLOG FLEXPEN SC (18:16)
[2024-04-09 19:03] VITALS: BP 133/82
[2024-04-09 21:30] LABS: Glucose - Point of Care 138 mg/dl (70-99)
[2024-04-09] MEDS: LANTUS SC (22:01)
[2024-04-09 23:05] VITALS: BP 134/68
[2024-04-10 03:03] VITALS: BP 135/70
[2024-04-10 05:41] LABS: Hemoglobin 12.9 g/dL (13.0-18.0); Mean Corp Hgb Conc. 34.9 g/dL (33.0-37.0); Mean Corpuscular Volume 91.8 fL (80.0-94.0); Mean Platelet Volume 12.9 fL (7.4-10.4); Platelet Count 123 10^3/uL (130-400); Red Blood Cell Count 4.03 10^6/uL (4.70-6.10); White Blood Cell Count 6.6 10^3/uL (4.8-10.8)
[2024-04-10 05:47] LABS: APTT 69.9 Sec (23.4-35.0)
[2024-04-10 06:04] LABS: ALT (SGPT) 64 U/L (0-50); AST (SGOT) 81 U/L (17-59); Albumin 3.5 g/dl (3.5-5.0); Alkaline Phosphatase 76 U/L (38-126); Blood Urea Nitrogen 18 mg/dl (9-20); Calcium 8.8 mg/dl (8.4-10.2); Carbon Dioxide 24 mmol/L (22-30); Chloride 105 mmol/L (98-107); Creatine Phosphokinase 532 U/L (55-170); Direct Bilirubin 0.5 mg/dl (0.0-0.4); Estimated Creatinine Clearance 61 ml/min; Glucose 154 mg/dl (70-99); Potassium 3.6 mmol/L (3.5-5.1); Sodium 138 mmol/L (135-145); Total Bilirubin 1.2 mg/dl (0.2-1.3); Total Protein 6.3 g/dl (6.3-8.2); eGFR > 60.00
[2024-04-10 06:59] VITALS: BP 116/75
[2024-04-10 08:12] LABS: Glucose - Point of Care 154 mg/dl (70-99)
[2024-04-10] MEDS: NOVOLOG FLEXPEN-LOW RESISTANCE 1 UNITS SC (08:22)
[2024-04-10] MEDS: NOVOLOG FLEXPEN 5 UNITS SC ×3 (08:22→17:13)
[2024-04-10] MEDS: LOW STRENGTH ASPIRIN 81 MG PO (08:23)
[2024-04-10] MEDS: COREG 6.25 MG PO ×2 (08:23→20:31)
[2024-04-10] MEDS: TAMIFLU 30 MG PO ×2 (08:23→20:37)
[2024-04-10] MEDS: CLARITIN 10 MG PO (08:23)
--- NOTE | 2024-04-10 08:53 | W.PN.CARDCBS ---
Today's Communication / Plan
-
Plan for coronary evaluation tomorrow
Impression / Plan
-
IMPRESSION:
Influenza A
CAD status post CABG
Non-ST segment elevation [place] versus non-ACS troponin elevation versus Takotsubo syndrome
Paroxysmal atrial fibrillation and atrial tachycardia
Hypertension
History of stroke 2019
Prostate cancer
Hypercholesterolemia
Mild rhabdomyolysis
Abnormal LFTs
Echo 04/07/2024: EF 40-45%, apex is hypo to akinetic, normal RV, normal atria, mild mitral regurgitation, aortic sclerosis, normal pulmonary artery pressure, apical wall motion abnormality is new and was 50%
Plan:
At present he is recovering from his influenza A, and he looks well from that standpoint.
Acute vs subacute NSTEMI
He is pain free
ECG with ant-lat ischemia
Initial troponin value 1.36 and subsequently declining
LAD distribution new wall motion abnormality on echocardiogram this admission
He was initially on aspirin and apixaban (for PAF) and on 04/08/24 Apixaban was stopped, heparin started.
Plan for coronary angiography on April 11
Have ordered heparin on hold April 11 at 7 AM
Continue carvedilol 6.25 mg BID
Continue atorvastatin 80 mg daily
Continue asa 81 mg daily.
Regarding PAF, remains in SR. Currently on IV Heparin, eventually transition back to apixaban 5 mg BID for AF related thromboembolic risk reduction
Essential HTN, BP well controlled. Continue carvedilol 6.25 mg BID
Mild JASBIR, renal function improved
Abnormal LFTs in the setting of influenza A and rhabdomyolysis, improved
Discussed with patient and his daughter and son-in-law at bedside, all questions answered and all in agreement for cath on Thursday
Total time 52 minutes
Clinical summary 83-year-old man with remote CABG in 2008 admitted with influenza A, weakness and malaise, CPK is 9750 after laying on the floor with troponin of 1.36 and AST of 217, has history of paroxysmal A-fib and atrial tachycardia with remote
CVA, hypertension and prostate cancer. His ejection fraction has dropped from 50% to 40-45% and he has a new apical wall motion abnormality
Progress Note - Bioinformatics Technician
Subjective
Date of Service: April 10, 2024
No chest pain shortness of breath palpitations or dizziness.
Objective
Labs:
04/10/24 05:19
04/10/24 05:19
Labs
Hgb 12.9 g/dL (13.0-18.0) L 04/10/24 05:19
Hct 37.0 % (39.0-52.0) L 04/10/24 05:19
Plt Count 123 10^3/uL (130-400) L 04/10/24 05:19
APTT 69.9 Sec (23.4-35.0) H 04/10/24 05:19
Sodium 138 mmol/L (135-145) 04/10/24 05:19
Potassium 3.6 mmol/L (3.5-5.1) 04/10/24 05:19
BUN 18 mg/dl (9-20) 04/10/24 05:19
Creatinine 0.9 mg/dL (0.7-1.3) 04/10/24 05:19
Glucose 154 mg/dl (70-99) H 04/10/24 05:19
Troponins
04/07/24 04/07/24 04/07/24
10:43 14:23 20:17
Troponin I 1.360 H* 1.130 H* 0.949 H*
04/08/24
03:43
Troponin I 0.671 H* D
Vital Signs and I&O:
Vital Signs
Temp Pulse Resp BP Pulse Ox
97.9 F 81 18 116/75 94
04/10/24 06:59 04/10/24 06:59 04/10/24 06:59 04/10/24 06:59 04/10/24 06:59
Vital Signs
Temp Pulse Resp BP Pulse Ox
97.9 F 81 18 116/75 94
04/10/24 06:59 04/10/24 06:59 04/10/24 06:59 04/10/24 06:59 04/10/24 06:59
Intake & Output
04/08/24 04/09/24 04/10/24 04/11/24
06:59 06:59 06:59 06:59
Intake Total 1600 / 1600 1840 / 1840 660 / 660
Output Total 600 / 600 300 / 300
Balance 1000 / 1000 1540 / 1540 660 / 660
Physical Exam
Physical Exam
Well appearing, no distress
RRR, Nl S1 and S2, no S3 or S4, 1/6 AHSM and no rubs
CTA b/l without wheezes rales or rhonchi
Trace pre-tibial edema b/l
[2024-04-10 11:23] VITALS: BP 135/71
[2024-04-10 11:44] LABS: Glucose - Point of Care 222 mg/dl (70-99)
[2024-04-10] MEDS: NOVOLOG FLEXPEN-LOW RESISTANCE 2 UNITS SC ×2 (11:46→17:12)
--- NOTE | 2024-04-10 11:46 | W.PN.HOSP.TC ---
Today's Communication/Plan
-
Continue antivirals
Heparin drip, every 6 PTT, heparin protocol for ACS
LHC/RHC 04/11/2024 per cardiology recommendation
Assessment / Plan
Assessment / Plan
NAD
Scleral Anicteric
MMM
No JVD
CTABL
RRR, S1/S2 BRIAN 1/ right upper sternal border
Soft, NT, ND, BS+
Warm, Dry
AAOx3
Calm
Influenza A
-Continue Tamiflu x 5 days
-Antitussive
-Antipyretic
NSTEMI
-Trop elevation now downtrending
-2d echo with wma - hypokinentic/akinetic gutiérrez
-Stop eliquis
-Start hep gtt
-LHC on Thursday (04/11)
-Tele monitor
-Cards
Acute rhabdo secondary to flu A
-IV fluids
-Daily CK
-PT OT
Transaminitis
-Secondary to rhabdo expect to improve follows LFTs
Cad s/p PCI x5 and CABG
-hep gtt
-hold statin due to transaminitis
DM c/b hyperglycemia
-A1c 9.1
-Long and short acting insulin
-Accuchecks
-BG 140-180
-CCdiet
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
-Would consider starting low dose ACEi post Cath for renoprotective properities
-Will check UCr:Protein ratio
CVA
-On statin and eliquis as an outpatient
-Both held for various reasons
--1) Eliquis held for Hep gtt
--2) Statin held for transaminitis
Anticipated Discharge: 24 - 48 hours
Subjective/Interval History
-
Date of Service: April 10, 2024
Seen and examined. No new complaints. No acute overnight events.
Family at bedside
No chest pain no shortness of breath feeling better
Objective Data
-
Labs:
Laboratory Results
04/10/24 04/10/24
05:19 12:00
WBC 6.6
Hgb 12.9 L
Hct 37.0 L
Plt Count 123 L
APTT 69.9 H Pending
Sodium 138
Potassium 3.6
Chloride 105
Carbon Dioxide 24
BUN 18
Creatinine 0.9
Glucose 154 H
Calcium 8.8
Total Bilirubin 1.2
AST 81 H
ALT 64 H
Alkaline Phosphatase 76
Vital Signs:
Vital Signs
Temp Pulse Resp BP Pulse Ox
97.9 F 81 18 116/75 94
04/10/24 06:59 04/10/24 06:59 04/10/24 06:59 04/10/24 06:59 04/10/24 06:59
I&O
04/09/24 04/10/24 04/11/24
06:59 06:59 06:59
Intake Total 1840 / 1840 660 / 660
Output Total 300 / 300
Balance 1540 / 1540 660 / 660
[2024-04-10 12:32] LABS: APTT 59.1 Sec (23.4-35.0)
[2024-04-10 15:15] VITALS: BP 127/74
[2024-04-10 16:47] LABS: Glucose - Point of Care 222 mg/dl (70-99)
[2024-04-10] MEDS: HEPARIN 25000 UNITS/250 ML IV (17:16)
[2024-04-10 18:55] LABS: APTT 57.5 Sec (23.4-35.0)
[2024-04-10 19:05] VITALS: BP 117/50
[2024-04-10 21:20] LABS: Glucose - Point of Care 228 mg/dl (70-99)
[2024-04-10] MEDS: LANTUS 0.1 UNITS SC (23:12)
[2024-04-10 23:42] VITALS: BP 141/66
[2024-04-11] VITALS (21 sets, daily range): BP systolic 42–161; BP diastolic 27–107; BMI 27.9
[2024-04-11 00:25] LABS: Glucose - Point of Care 246 mg/dl (70-99)
[2024-04-11] MEDS: NOVOLOG FLEXPEN-LOW RESISTANCE 2 UNITS SC (00:51)
[2024-04-11 02:15] LABS: APTT 128.2 Sec (23.4-35.0)
[2024-04-11 05:51] LABS: Glucose - Point of Care 158 mg/dl (70-99)
[2024-04-11] MEDS: NOVOLOG FLEXPEN-LOW RESISTANCE 1 UNITS SC (06:18)
[2024-04-11] MEDS: NOVOLOG FLEXPEN SC ×2 (06:42→11:48)
--- NOTE | 2024-04-11 07:27 | W.PN.HOSP.TC ---
Today's Communication/Plan
-
;/
Assessment / Plan
Assessment / Plan
Assessment/plan
#Sepsis POA secondary to influenza virus
-Continue renally dosed Tamiflu
-Lactate normal
-Chest x-ray�no acute cardiopulmonary process
-PT/OT
#NSTEMI
-No episodes of chest pain
-Echocardiogram- The apical gutiérrez are severely hypokinetic-akinetic with an estimated ejection fraction of 40-45%.
-Troponin peaked
-With new findings on echo, plan for cardiac catheterization TODAY
-Heparin gtt
#CAD s/p CABG 2008 and PCI
-Echo 04/07- When compared to the most recent echocardiogram from 11/24/2019, a new regional wall motion abnormality is noted at the left ventricular apex which is severely hypokinetic to akinetic. The estimated ejection fraction is 40-45%.
-Heparin gtt
#Paroxysmal atrial fibrillation
-Continue Coreg
-Hold Eliquis, heparin gtt
#Rhabdomyolysis secondary to Influenza A virus
-Resolving
-Trend LFTs, now downtrending
#T2DM
-HbA1c 9.1
-Start NovoLog 5 units, Lantus 10 units
-Coverage with sliding scale insulin
-Hold home oral agents
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
-Would consider starting low dose ACEi post Cath for renoprotective properities
-UCr:Protein ratio pending
#Essential hypertension
-Continue on Coreg
#Hyperlipidemia
-Hold statin due to elevated LFTs
DVT prophylaxis-heparin gtt
CODE STATUS-DNR
Anticipated Discharge: > 48 hours
Subjective/Interval History
-
Date of Service: April 11, 2024
Objective Data
-
Labs:
Laboratory Results
04/11/24 04/11/24 04/11/24
01:12 01:54 06:00
APTT Cancelled 128.2 H
Sodium Pending
Potassium Pending
Chloride Pending
Carbon Dioxide Pending
BUN Pending
Creatinine Pending
Glucose Pending
Calcium Pending
Total Bilirubin Pending
AST Pending
ALT Pending
Alkaline Phosphatase Pending
04/11/24
08:15
APTT Pending
Sodium
Potassium
Chloride
Carbon Dioxide
BUN
Creatinine
Glucose
Calcium
Total Bilirubin
AST
ALT
Alkaline Phosphatase
Vital Signs:
Vital Signs
Temp Pulse Resp BP Pulse Ox
97.8 F 78 16 144/81 97
04/11/24 07:00 04/11/24 07:00 04/11/24 07:00 04/11/24 07:00 04/11/24 07:00
I&O
04/10/24 04/11/24 04/12/24
06:59 06:59 06:59
Intake Total 660 / 660 1140 / 1140
Output Total 1800 / 1800
Balance 660 / 660 -660 / -660
Review of Systems
-
All other systems: Reviewed and negative (Except as documented)
Physical Exam
-
General: Well Developed, Well Nourished and No Apparent Distress
Respiratory: Clear to Auscultation
Cardiac: Regular Rhythm and S1/S2
GI: Soft, Nontender, Nondistended and Normal Bowel Sounds
Musculoskeletal: No Edema
Neuro: Awake and Alert
[2024-04-11 08:40] LABS: APTT 49.5 Sec (23.4-35.0)
[2024-04-11 08:51] LABS: ALT (SGPT) 53 U/L (0-50); AST (SGOT) 49 U/L (17-59); Albumin 3.9 g/dl (3.5-5.0); Alkaline Phosphatase 85 U/L (38-126); Blood Urea Nitrogen 17 mg/dl (9-20); Calcium 8.9 mg/dl (8.4-10.2); Carbon Dioxide 23 mmol/L (22-30); Chloride 103 mmol/L (98-107); Direct Bilirubin 0.3 mg/dl (0.0-0.4); Estimated Creatinine Clearance 61 ml/min; Glucose 215 mg/dl (70-99); Potassium 3.7 mmol/L (3.5-5.1); Sodium 137 mmol/L (135-145); Total Bilirubin 0.9 mg/dl (0.2-1.3); Total Protein 6.7 g/dl (6.3-8.2); eGFR > 60.00
[2024-04-11] MEDS: COREG 6.25 MG PO ×2 (09:13→20:40)
[2024-04-11] MEDS: LOW STRENGTH ASPIRIN 81 MG PO (09:13)
[2024-04-11] MEDS: TAMIFLU 30 MG PO ×2 (09:13→20:40)
[2024-04-11] MEDS: CLARITIN 10 MG PO (09:13)
--- NOTE | 2024-04-11 09:18 | W.PN.UPDATE ---
Update Note
Progress Note Update
I saw and evaluated the patient. I reviewed the resident�s note and agree with findings and plan as documented in the resident�s note.
Denies CP/SOB.
Gen: NAD, AAOx3.
Eyes: EOMI, PERRLA, no scleral icterus.
Neck: supple.
CV: RRR, +S1/S2, no m/r/g.
Resp: CTAB, no rales, wheezes, or rhonchi.
Abd: +BS, soft, NT, ND
Skin: No rashes.
Neuro: CN 2-12 intact, non-focal.
Psych: Normal mood and affect.
CT brain: No acute intracranial abnormalities. Old 9 mm lacunar infarct involving the neck of the caudate and genu of the internal capsule on the right. Moderate diffuse cortical atrophy with moderate nonspecific white matter changes.
CXR: No acute cardiopulmonary process.
Echo:
1. Left ventricle normal size with mild concentric LVH. 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
2. Right ventricle: Normal
3. Atria: Normal
4. Mitral valve: Mild mitral regurgitation
5. Aortic valve: Sclerotic. No aortic insufficiency
6. Tricuspid valve: Trace tricuspid regurgitation with estimated pulmonary
artery systolic pressures of 15-20 mmHg
7. When compared to the most recent echocardiogram from 11/24/2019, a new
regional wall motion abnormality is noted at the left ventricular apex which is
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 The estimated ejection fraction is 40-45% by
Russ's method of disc and was estimated near 50% on the prior study.
Acute Influenza A infection:
-cont Tamiflu x 5 days
-acute rhabdomyolysis due to acute influenza A infection, CPK has improved with IV fluids
-Acute transaminitis due to acute rhabdomyolysis, nearly resolved. Okay to restart statin.
Acute NSTEMI:
-trop peaked at 1.360, downtrending
-Echo above with apical WMA, cath today
-was on Eliquis, now on heparin gtt
-cards following
-h/o CAD s/p PCI x 5 and CABG
-restart statin
-cont ASA/Coreg
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
-a1c 9.1%
-cont Lantus/premeal Novolog/SSI/accuchecks/diabetic diet
h/o CVA:
-restart statin
-currently on heparin gtt (on Eliquis as outpt)
DNR/heparin gtt
Total time spent on today's encounter was 50 minutes which included time spent in counseling the patient/family regarding diagnosis and treatment plan as listed above, goals of care, and symptom management. Case was discussed with nursing staff,
specialists, and care coordinators/case management. All labs and imaging personally reviewed by me. Remainder the time spent in detailed review of previous records, lab data, imaging, and other medical provider documentation.
--- NOTE | 2024-04-11 09:40 | PTCARENOTE ---
Addendum entered by Caro Agarwal RN 04/11/24 13:22:
pt transported from to IVU to room 2243 post labor mediator.
Addendum entered by Caro Agarwal RN 04/11/24 10:31:
pt gown, sheets and linens changed prior to going to [facility]. pt voided prior to transport. remained on room air. urine sent for labs.
Original Note:
heparin gtt on hold per order. ptt resulted at 49.5 this AM. now q6 sugar checks until oral intake is resumed. daughter at bedside at this time.
--- NOTE | 2024-04-11 10:49 | ITS.CL.CATH ---
[facility] - Catheterization
Cardiac Catheterization
Procedure Report:
LEFT HEART CATHETERIZATION
Date of Procedure: April 11, 2024
Referring: Jese Pemberton MD
PROCEDURES:
1. Left heart catheterization, coronary angiogram.
2. Selective graft angiography.
3. Ultrasound-guided access.
4. Successful percutaneous coronary artery intervention of an eccentric 70 to 75% stenosis in the saphenous vein graft with IVUS guidance and utilization with a spider distal embolic protection device with one 3.0 x 15 mm Medtronic Yovany
drug-eluting stent, postdilated with a 3.25 x 12 mm NC balloon at 16 cristo with an excellent angiographic result.
5. Intravascular ultrasound (IVUS) of PCI and proximal portion of the SVG.
6. Spider distal embolic protection device.
INDICATION: NSTEMI.
ACCESS: Left radial artery, 6 Egyptian sheath, under ultrasound guidance.
Ultrasound was utilized for vascular access. The radial artery was visualized under ultrasound, and the vessel was patent and pulsatile. An image was stored permanently in the patient's medical record. Under direct ultrasound guidance, a 6 Egyptian
sheath was inserted into the artery using a micropuncture kit through a modified Seldinger technique.
HEMODYNAMICS : (mmHg)
AO (s/d) : 119/70, 90
LV (s/d) : 129/6
LVEDP : 13
CORONARY FINDINGS
DOMINANCE: Right
LEFT MAIN: The left main artery is a medium caliber vessel which gives rise to the left anterior descending artery and the left circumflex artery. There is a calcified 90% stenosis in the distal left main
LEFT ANTERIOR DESCENDING: The proximal LAD has diffuse 70 to 80% stenosis with occlusion in the midportion and competitive flow from the patent JEFFERSON graft.
CIRCUMFLEX: There is a 80% ostial left circumflex stenosis with OM branch being followed by a patent saphenous vein graft.
RIGHT CORONARY ARTERY: The right coronary artery is a medium to large caliber, dominant vessel which gives rise to the right posterior descending artery and the right posterolateral system. There is a subtotal occlusion in the mid RCA with prior
stents in the proximal and distal RCA. Distal RPDA and RPL branches are filling with patent saphenous vein graft
GRAFT ANGIOGRAPHY:
1. JEFFERSON to LAD: JEFFERSON graft is widely patent with touchdown in the mid to distal LAD. [place] LAD a few millimeters beyond the touchdown is a very small caliber vessel with moderate to severe diffuse CAD and not a PCI target. ELIAS-3 flow is noted.
2. Saphenous vein graft sequential to OM, RPDA and RPL: The saphenous vein graft has a eccentric 70 to 80% stenosis at the level of the second skip between OM and RPL. Decision was made to intervene on this lesion after discussion with Dr. Boland
Boni given threat to vessel closure in the near future. Proximal portion of the saphenous vein graft has a hazy lesion just proximal to the venous valve which was assessed using IVUS guidance without evidence of obstructive CAD and therefore, not
intervened upon.
SVG INTERVENTION: The saphenous vein graft was selectively engaged using a 6 Egyptian JR4 guide catheter. Additional heparin was given to maintain a therapeutic ACT throughout the case. Initially we tried wiring with a 190 cm 0.014 BMW wire however
given the acute bend from the guide into the vessel, the tip of the wire developed a bend which made it difficult to navigate the 70 to 80% lesion. While leaving the initial BMW wire in the mid portion of the vein graft for guide support, second
190 cm 0.014 BMW coronary wire was successfully advanced across the lesion into the distal vessel. Over the BMW wire we introduced a 5 mm spider distal embolic protection device which was parked just distal to the lesion. The BMW wire was then
retracted. Over the wire from the spider device we predilated the lesion using a 3.0 x 15 mm semicompliant balloon at 14 cristo with good expansion. We subsequently stented the lesion using a 3.0 by 15mm Medtronic Yovany drug-eluting stent which was
postdilated using IVUS guidance with a 3.25 x 12 mm NC balloon at 16 cristo with an excellent angiographic and IVUS based result. Proximal portion of the saphenous vein graft has a hazy lesion just proximal to the venous valve which was assessed using
IVUS guidance without evidence of obstructive CAD and therefore, not intervened upon. Patient was loaded with 600 mg of Plavix at the end of the case. No acute complications. Patient tolerated the procedure well.
SEDATION: 109 minutes of procedural sedation was utilized. An independent medical practice assistant was present to assist with and help manage the patient's level of consciousness and physiologic status.
RADIATION SUMMARY: Fluoro Time (min): 20.8, Dose (mGy): 1149.06, DAP (Gy.cm2) : 79.9
Closure Device: Vascular band over left radial artery, 10 cc of air.
CONCLUSIONS
1. Successful percutaneous coronary artery intervention of an eccentric 70 to 75% stenosis in the saphenous vein graft with IVUS guidance and utilization with a Macoscope distal embolic protection device with one 3.0 x 15 mm Medtronic Yovany drug-eluting
stent, postdilated with a 3.25 x 12 mm NC balloon at 16 cristo with an excellent angiographic result.
2. Significant [place] coronary artery disease.
3. Patent JEFFERSON to LAD with moderate to severe diffuse distal/apical LAD disease, not a PCI target.
4. Normal LVEDP at 13 mmHg.
RECOMMENDATIONS
1. Plan for daily baby aspirin, Plavix 75 mg and Eliquis while patient is hospitalized with plan to discharge home on Eliquis and Plavix 75 mg daily along with high intensity statin and beta-abby as tolerated.
2. Goal-directed medical therapy for ischemic cardiomyopathy.
3. Aggressive management of cardiovascular risk factors.
4. Wean radial band per protocol.
5. Referral for outpatient cardiac rehab.
Copy to: Jese Pemberton MD and Walter Campos MD
Lurdes Bowers MD, [facility], [facility]
[2024-04-11 11:43] LABS: ACT-LR - POC 227 Seconds (116-155)
[2024-04-11 11:53] LABS: ACT-LR - POC 253 Seconds (116-155)
[2024-04-11 12:04] LABS: ACT-LR - POC 237 Seconds (116-155)
[2024-04-11 12:07] LABS: Protein/creatinine Ratio 0.1; Urine Protein 13 mg/dl
[2024-04-11 12:11] LABS: ACT-LR - POC 289 Seconds (116-155)
[2024-04-11 12:31] LABS: ACT-LR - POC 290 Seconds (116-155)
[2024-04-11] MEDS: NOVOLOG FLEXPEN-LOW RESISTANCE SC (12:33)
--- NOTE | 2024-04-11 14:28 | PTCARENOTE ---
Addendum entered by eLxi Echevarria RN 04/11/24 16:50:
patient is oriented to person only, this is patients baseline.
Original Note:
received patient from [facility] [employer] with left radial R band intact, distal pulse palpable. IV NSS @ 128cc/hr via left forearm. patient diagnosed with flu, remains on droplet precautions. patient has harsh cough, moist, rhonchi throughout, remains on RA,
o2 sat 96%. oriented to new room and surroundings. family at bedside.
--- NOTE | 2024-04-11 14:35 | CM ---
Pricing on [facility] through the patient's [employer] is $45 for a 30 day and $90 for a 3 month mail order.
[employer] is also $45 for a 30 day and $90 for a 3m supply.
Patient will go home on [facility]. Patient is agreeable to cost. I will place a free 30d coupon in the patient's red discharge folder.
--- NOTE | 2024-04-11 14:51 | CM ---
Chart reviewed. Patient is independent of ADLS, lives with his in a multilevel home, 3 HALI, ambulates with a SPC and RW. Referral sent to [facility]. Plan is for the patient to return home with [facility]. CM to follow.
--- NOTE | 2024-04-11 16:47 | PTCARENOTE ---
patient attempting to get OOB, bed alarm placed.
[2024-04-11 18:02] LABS: Glucose - Point of Care 299 mg/dl (70-99)
[2024-04-11] MEDS: NOVOLOG FLEXPEN-LOW RESISTANCE 3 UNITS SC (18:03)
[2024-04-11] MEDS: NOVOLOG FLEXPEN 5 UNITS SC (18:03)
[2024-04-11] MEDS: ELIQUIS 5 MG PO (20:40)
[2024-04-11 22:10] LABS: Glucose - Point of Care 224 mg/dl (70-99)
[2024-04-11] MEDS: LANTUS 0.1 UNITS SC (22:22)
[2024-04-12] VITALS (11 sets, daily range): BP systolic 80–148; BP diastolic 61–107; PULSE 74–84; O2SAT 94–96; BMI 27.5
--- NOTE | 2024-04-12 04:32 | PTCARENOTE ---
Pt NSR with PVCs on monitor. Denies pain or SOB. Pt ambulates with x1 assist and rolling walker. safety measures in place.
[2024-04-12 05:08] LABS: ALT (SGPT) 49 U/L (0-50); AST (SGOT) 46 U/L (17-59); Albumin 3.6 g/dl (3.5-5.0); Alkaline Phosphatase 86 U/L (38-126); Blood Urea Nitrogen 15 mg/dl (9-20); Calcium 8.8 mg/dl (8.4-10.2); Carbon Dioxide 23 mmol/L (22-30); Chloride 104 mmol/L (98-107); Direct Bilirubin 0.3 mg/dl (0.0-0.4); Estimated Creatinine Clearance 61 ml/min; Glucose 200 mg/dl (70-99); HDL Cholesterol 28 mg/dl; LDL Cholesterol, Calculated 116 mg/dl; Potassium 3.7 mmol/L (3.5-5.1); Sodium 138 mmol/L (135-145); Total Bilirubin 0.8 mg/dl (0.2-1.3); Total Cholesterol 177 mg/dl (50-199); Total Protein 6.4 g/dl (6.3-8.2); Triglyceride 166 mg/dl (10-149); Very Low Density Lipoprotein 33 mg/dl (0-30); eGFR > 60.00
[2024-04-12 05:11] LABS: Hematocrit 35.4 % (39.0-52.0); Hemoglobin 12.3 g/dL (13.0-18.0); Mean Corp Hgb Conc. 34.7 g/dL (33.0-37.0); Mean Corpuscular Hgb 32.2 pg (27.0-31.0); Mean Corpuscular Volume 92.7 fL (80.0-94.0); Platelet Count 155 10^3/uL (130-400); Red Blood Cell Count 3.82 10^6/uL (4.70-6.10); Red Cell Dist. Width 12.3 % (11.5-14.5); White Blood Cell Count 7.8 10^3/uL (4.8-10.8)
--- NOTE | 2024-04-12 07:11 | W.PN.HOSP.TC ---
Today's Communication/Plan
-
;/
Assessment / Plan
Assessment / Plan
Assessment/plan
#Sepsis POA secondary to influenza virus
-Continue renally dosed Tamiflu
-Lactate normal
-Chest x-ray�no acute cardiopulmonary process
-PT/OT
#NSTEMI s/p LHC, Coronary Angiogram 04/11
-Stents placed to saphenous graft
-No episode of chest pain
-Echocardiogram- The apical gutiérrez are severely hypokinetic-akinetic with an estimated ejection fraction of 40-45%.
-Troponin peaked
-Cardiology following.
-Aspirin, Plavix, Eliquis, High Intensity statin
#Ischemic Cardiomyopathy
-GDMT with BB, ARB, SGLT2i
-Farxiga started this admission.
#CAD s/p CABG 2008 and PCI
-Echo 04/07- When compared to the most recent echocardiogram from 11/24/2019, a new regional wall motion abnormality is noted at the left ventricular apex which is severely hypokinetic to akinetic. The estimated ejection fraction is 40-45%.
#Paroxysmal atrial fibrillation
-Continue Coreg
-Anticoagulation with Eliquis
#Rhabdomyolysis secondary to Influenza A virus
-Transaminitis Resolved.
#T2DM
-HbA1c 9.1
-Start NovoLog 5 units, Lantus 10 units
-Coverage with sliding scale insulin
-Farxiga started
-Hold home oral agents
#Essential hypertension
-Continue on Coreg
#Hyperlipidemia
-Hold statin due to elevated LFTs
DVT prophylaxis-Eliquis
CODE STATUS-DNR
Anticipated Discharge: Within 24 hours
Subjective/Interval History
-
Date of Service: April 12, 2024
Objective Data
-
Labs:
Laboratory Results
04/12/24
03:50
WBC 7.8
Hgb 12.3 L
Hct 35.4 L
Plt Count 155 D
Sodium 138
Potassium 3.7
Chloride 104
Carbon Dioxide 23
BUN 15
Creatinine 0.9
Glucose 200 H
Calcium 8.8
Total Bilirubin 0.8
AST 46
ALT 49
Alkaline Phosphatase 86
Vital Signs:
Vital Signs
Temp Pulse Resp BP Pulse Ox
98.1 F 83 18 142/84 96
04/12/24 03:46 04/12/24 07:00 04/12/24 03:46 04/12/24 03:40 04/12/24 03:46
I&O
04/11/24 04/12/24 04/13/24
06:59 06:59 06:59
Intake Total 1140 / 1140 640 / 640
Output Total 1800 / 1800
Balance -660 / -660 640 / 640
Review of Systems
-
All other systems: Reviewed and negative (Except as documented)
Physical Exam
-
General: Well Developed, Well Nourished and No Apparent Distress
Respiratory: Clear to Auscultation
Cardiac: Regular Rhythm and S1/S2
GI: Soft, Nontender, Nondistended and Normal Bowel Sounds
Musculoskeletal: No Edema
Neuro: Awake and Alert
[2024-04-12 08:26] LABS: Glucose - Point of Care 207 mg/dl (70-99)
--- NOTE | 2024-04-12 08:34 | W.PN.CARDCBS ---
Today's Communication / Plan
-
Okay for discharge.
See below for medication recommendations
We will arrange for outpatient cardiac follow-up
Impression / Plan
-
IMPRESSION:
Non-ST segment elevation AR
PCI 04/11/2024, 3 mm Williamson stent to sequential saphenous vein graft to OM/posterolateral/PDA
Influenza A
CAD status post CABG
Non-ST segment elevation AR versus non-ACS troponin elevation versus Takotsubo syndrome
Paroxysmal atrial fibrillation and atrial tachycardia
Hypertension
History of stroke 2019
Prostate cancer
Hypercholesterolemia
Mild rhabdomyolysis
Abnormal LFTs
Echo 04/07/2024: EF 40-45%, apex is hypo to akinetic, normal RV, normal atria, mild mitral regurgitation, aortic sclerosis, normal pulmonary artery pressure, apical wall motion abnormality is new and was 50%
Plan:
Overall he looks well 1 day out from PCI of sequential saphenous vein graft.
He seems to be recovering from the flu.
His ECG is stable and T wave changes will likely improve over time.
Suspect that wall motion abnormality will also improve. Will likely repeat echo in 2 to 3 months.
Creatinine is now less than 1.
Okay for discharge from cardiac standpoint.
Recommended cardiac medications at discharge:
Aspirin 81 mg a day for 1 week, then stop
Carvedilol 6.25 mg twice daily
Atorvastatin 80 mg a day
Clopidogrel 75 mg a day (new)
Losartan 25 mg a day (new)
Apixaban 5 mg twice daily
Dapagliflozin 10 mg a day (new)
Ezetimibe 10 mg a day (new)
We will arrange for cardiac follow-up
Clinical summary 83-year-old man with remote CABG in 2008 admitted with influenza A, weakness and malaise, CPK is 9750 after laying on the floor with troponin of 1.36 and AST of 217, has history of paroxysmal A-fib and atrial tachycardia with remote
CVA, hypertension and prostate cancer. His ejection fraction has dropped from 50% to 40-45% and he has a new apical wall motion abnormality
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
Subjective
Date of Service: April 12, 2024:
Admitted April 08 with weakness in the setting of influenza A, underwent placement of a 3 x 15 mm Williamson stent to sequential vein graft to OM/PL/right PDA on April 11
He offers no complaints, wants to go home, says 'I have got to get back to work'
PMH/PSH: CAD/CABG 2008, PAF and atrial tachycardia, hypertension, history of CVA 2019, remote prostate cancer, hypertension
Medications: Aspirin 81 mg a day, glipizide, carvedilol 6.25 mg twice daily, atorvastatin 80 mg a day, Tamiflu, insulin, clopidogrel 75 mg a day, losartan 25 mg a day, apixaban 5 mg twice daily, dapagliflozin 10 mg a day and insulin
133/78, pulse 82, respiratory rate 18, sats 96%, no distress, rare crackles in lungs, soft systolic murmur at base, abdomen benign, head neck exam unremarkable, extremities without clubbing cyanosis edema left radial puncture site intact, pulses
intact
EKG today: Sinus rhythm, anterolateral T wave inversions, first-degree AV block, intraventricular conduction delay
Hemoglobin 12.3, platelets 155, BUN and creatinine 15 and 0.9, potassium 3.7
Objective
Labs:
04/12/24 03:50
04/12/24 03:50
Labs
Hgb 12.3 g/dL (13.0-18.0) L 04/12/24 03:50
Hct 35.4 % (39.0-52.0) L 04/12/24 03:50
Plt Count 155 10^3/uL (130-400) D 04/12/24 03:50
APTT 49.5 Sec (23.4-35.0) H 04/11/24 08:16
Sodium 138 mmol/L (135-145) 04/12/24 03:50
Potassium 3.7 mmol/L (3.5-5.1) 04/12/24 03:50
BUN 15 mg/dl (9-20) 04/12/24 03:50
Creatinine 0.9 mg/dL (0.7-1.3) 04/12/24 03:50
Glucose 200 mg/dl (70-99) H 04/12/24 03:50
Vital Signs and I&O:
Vital Signs
Temp Pulse Resp BP Pulse Ox
36.7 C 82 18 133/78 96
04/12/24 03:46 04/12/24 07:24 04/12/24 03:46 04/12/24 07:24 04/12/24 03:46
Vital Signs
Temp Pulse Resp BP Pulse Ox
36.7 C 82 18 133/78 96
04/12/24 03:46 04/12/24 07:24 04/12/24 03:46 04/12/24 07:24 04/12/24 03:46
Intake & Output
04/10/24 04/11/24 04/12/24 04/13/24
07:59 07:59 07:59 07:59
Intake Total 660 / 660 1140 / 1140 640 / 640
Output Total 1800 / 1800
Balance 660 / 660 -660 / -660 640 / 640
Physical Exam
Physical Exam
See above
[2024-04-12] MEDS: COREG 6.25 MG PO ×2 (08:38→19:59)
[2024-04-12] MEDS: FARXIGA 10 MG PO (08:38)
[2024-04-12] MEDS: PLAVIX 75 MG PO (08:38)
[2024-04-12] MEDS: LOW STRENGTH ASPIRIN 81 MG PO (08:38)
[2024-04-12] MEDS: ELIQUIS 5 MG PO ×2 (08:38→19:59)
[2024-04-12] MEDS: COZAAR 25 MG PO (08:38)
[2024-04-12] MEDS: LIPITOR 80 MG PO (08:38)
[2024-04-12] MEDS: CLARITIN 10 MG PO (08:45)
[2024-04-12] MEDS: TAMIFLU 30 MG PO ×2 (08:45→19:59)
--- NOTE | 2024-04-12 09:03 | W.PN.UPDATE ---
Update Note
Progress Note Update
I saw and evaluated the patient. I reviewed the resident�s note and agree with findings and plan as documented in the resident�s note.
Denies CP/SOB.
Gen: NAD, AAOx3.
Eyes: EOMI, PERRLA, no scleral icterus.
Neck: supple.
CV: remains RRR, +S1/S2, no m/r/g.
Resp: remains CTAB, no rales, wheezes, or rhonchi.
Abd: remains +BS, soft, NT, ND
Skin: No rashes.
Neuro: CN 2-12 intact, non-focal.
Psych: Normal mood and affect.
CT brain: No acute intracranial abnormalities. Old 9 mm lacunar infarct involving the neck of the caudate and genu of the internal capsule on the right. Moderate diffuse cortical atrophy with moderate nonspecific white matter changes.
CXR: No acute cardiopulmonary process.
LHC:
1. Successful percutaneous coronary artery intervention of an eccentric 70 to 75% stenosis in the saphenous vein graft with IVUS guidance and utilization with a spider distal embolic protection device with one 3.0 x 15 mm Medtronic Yovany drug-eluting
stent, postdilated with a 3.25 x 12 mm NC balloon at 16 cristo with an excellent angiographic result.
2. Significant [place] coronary artery disease.
3. Patent JEFFERSON to LAD with moderate to severe diffuse distal/apical LAD disease, not a PCI target.
4. Normal LVEDP at 13 mmHg.
Echo:
1. Left ventricle normal size with mild concentric LVH. 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
2. Right ventricle: Normal
3. Atria: Normal
4. Mitral valve: Mild mitral regurgitation
5. Aortic valve: Sclerotic. No aortic insufficiency
6. Tricuspid valve: Trace tricuspid regurgitation with estimated pulmonary
artery systolic pressures of 15-20 mmHg
7. When compared to the most recent echocardiogram from 11/24/2019, a new
regional wall motion abnormality is noted at the left ventricular apex which is
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 The estimated ejection fraction is 40-45% by
Russ's method of disc and was estimated near 50% on the prior study.
Acute Influenza A infection:
-cont Tamiflu x 5 days
-acute rhabdomyolysis due to acute influenza A infection, CPK has improved with IV fluids
-Acute transaminitis due to acute rhabdomyolysis, nearly resolved.
Acute NSTEMI:
-h/o CAD s/p PCI x 5 and CABG
-trop peaked at 1.360, downtrending
-Echo above with apical WMA, cath 04/11/24 as above, stent placed to saphenous graft
-was on Eliquis, then on heparin gtt, now back on Eliquis
-cards following
-cont ASA/Coreg/statin/Plavix
Other problems:
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
h/o CVA: cont statin/Eliquis
DNR/Eliquis
Medically cleared for discharge. Case management aware.
[2024-04-12] MEDS: NOVOLOG FLEXPEN 5 UNITS SC ×3 (10:17→17:33)
[2024-04-12] MEDS: NOVOLOG FLEXPEN-LOW RESISTANCE 2 UNITS SC ×3 (10:18→17:33)
--- NOTE | 2024-04-12 12:37 | CM ---
Addendum entered by Mary Oleary RN 04/12/24 14:51:
PT recommending SNF. OT in to see patient. Referrals sent to [facility] and [facility]. CM to follow
Original Note:
Chart reviewed. Patient is independent of ADLS, lives with his in a m. level home, 3 HALI, ambulates with a SPC and RW. Patient's son and daughter concerned of patient having frequent falls. Also bedroom is on the 2nd floor. PT evaluation
reordered. Depending on PT evaluation, if patient needs SNF, patient's family prefer [facility], [facility] and [facility]. Plan is for the patient to return home with VN vs SNF based on PT evaluation. CM to follow
[2024-04-12 14:10] LABS: Glucose - Point of Care 232 mg/dl (70-99)
--- NOTE | 2024-04-12 15:44 | PTCARENOTE ---
Pt has been OOB in chair at meals. Ambulating around room w/ assist x1 and RW. Bed alarm in place for safety. Pt has no complaints of pain/discomfort. Plan of care verbalized w/ pt and family. Verbalizes understanding. Call artem w/in reach.
[2024-04-12 17:34] LABS: Glucose - Point of Care 207 mg/dl (70-99)
[2024-04-12] MEDS: LANTUS 0.1 UNITS SC (21:58)
[2024-04-12 22:06] LABS: Glucose - Point of Care 220 mg/dl (70-99)
[2024-04-13] VITALS (8 sets, daily range): BP systolic 114–143; BP diastolic 48–92; PULSE 82–93; BMI 26.9
[2024-04-13 05:13] LABS: ALT (SGPT) 49 U/L (0-50); AST (SGOT) 42 U/L (17-59); Albumin 3.4 g/dl (3.5-5.0); Alkaline Phosphatase 89 U/L (38-126); Blood Urea Nitrogen 17 mg/dl (9-20); Calcium 9.8 mg/dl (8.4-10.2); Carbon Dioxide 24 mmol/L (22-30); Chloride 104 mmol/L (98-107); Direct Bilirubin 0.2 mg/dl (0.0-0.4); Estimated Creatinine Clearance 55 ml/min; Glucose 175 mg/dl (70-99); Potassium 3.8 mmol/L (3.5-5.1); Sodium 138 mmol/L (135-145); Total Bilirubin 1.1 mg/dl (0.2-1.3); Total Protein 5.9 g/dl (6.3-8.2); eGFR > 60.00
--- NOTE | 2024-04-13 05:37 | PTCARENOTE ---
Pt NSR with PVCs on monitor. Denies pain or SOB. Ambulates with assist x1 and RW. Safety measures in place.
--- NOTE | 2024-04-13 07:17 | W.PN.HOSP.TC ---
Today's Communication/Plan
-
;/
Assessment / Plan
Assessment / Plan
Assessment/plan
#Sepsis POA secondary to influenza virus
-Continue renally dosed Tamiflu
-Lactate normal
-Chest x-ray�no acute cardiopulmonary process
-PT/OT
#NSTEMI s/p LHC, Coronary Angiogram 04/11
-Stents placed to saphenous graft
-No episode of chest pain
-Echocardiogram- The apical gutiérrez are severely hypokinetic-akinetic with an estimated ejection fraction of 40-45%.
-Troponin peaked
-Cardiology following.
-Aspirin, Plavix, Eliquis, High Intensity statin
#Ischemic Cardiomyopathy
-GDMT with BB, ARB, SGLT2i
-Farxiga started this admission.
#CAD s/p CABG 2008 and PCI
-Echo 04/07- When compared to the most recent echocardiogram from 11/24/2019, a new regional wall motion abnormality is noted at the left ventricular apex which is severely hypokinetic to akinetic. The estimated ejection fraction is 40-45%.
#Paroxysmal atrial fibrillation
-Continue Coreg
-Anticoagulation with Eliquis
#Rhabdomyolysis secondary to Influenza A virus
-Transaminitis Resolved.
#T2DM
-HbA1c 9.1
-Start NovoLog 5 units, Lantus 10 units
-Coverage with sliding scale insulin
-Farxiga started
-Hold home oral agents
#Essential hypertension
-Continue on Coreg
#Hyperlipidemia
-Hold statin due to elevated LFTs
DVT prophylaxis-Eliquis
CODE STATUS-DNR
Medically cleared for discharge. Awaiting placement
Anticipated Discharge: Within 24 hours
Subjective/Interval History
-
Date of Service: April 13, 2024
Objective Data
-
Labs:
Laboratory Results
04/13/24
04:32
Sodium 138
Potassium 3.8
Chloride 104
Carbon Dioxide 24
BUN 17
Creatinine 1.0
Glucose 175 H
Calcium 9.8
Total Bilirubin 1.1
AST 42
ALT 49
Alkaline Phosphatase 89
Vital Signs:
Vital Signs
Temp Pulse Resp BP Pulse Ox
98.3 F 75 17 130/68 95
04/13/24 04:25 04/13/24 04:30 04/13/24 04:25 04/13/24 04:26 04/13/24 04:26
I&O
04/12/24 04/13/24 04/14/24
06:59 06:59 06:59
Intake Total 640 / 640 750 / 750
Balance 640 / 640 750 / 750
Review of Systems
-
All other systems: Reviewed and negative (Except as documented)
Physical Exam
-
General: Well Developed, Well Nourished and No Apparent Distress
Respiratory: Clear to Auscultation
Cardiac: Regular Rhythm and S1/S2
GI: Soft, Nontender, Nondistended and Normal Bowel Sounds
Musculoskeletal: No Edema
Neuro: Awake and Alert
[2024-04-13 08:09] LABS: Glucose - Point of Care 184 mg/dl (70-99)
[2024-04-13] MEDS: ELIQUIS 5 MG PO ×2 (08:11→19:14)
[2024-04-13] MEDS: COZAAR 25 MG PO (08:11)
[2024-04-13] MEDS: COREG 6.25 MG PO ×2 (08:12→19:14)
[2024-04-13] MEDS: FARXIGA 10 MG PO (08:12)
[2024-04-13] MEDS: LIPITOR 80 MG PO (08:12)
[2024-04-13] MEDS: CLARITIN 10 MG PO (08:12)
[2024-04-13] MEDS: TAMIFLU 30 MG PO (08:12)
[2024-04-13] MEDS: LOW STRENGTH ASPIRIN 81 MG PO (08:12)
[2024-04-13] MEDS: PLAVIX 75 MG PO (08:12)
[2024-04-13 09:59] LABS: Glucose - Point of Care 181 mg/dl (70-99)
[2024-04-13] MEDS: NOVOLOG FLEXPEN-LOW RESISTANCE 1 UNITS SC ×2 (10:23→13:30)
[2024-04-13] MEDS: NOVOLOG FLEXPEN 5 UNITS SC ×3 (10:23→17:06)
--- NOTE | 2024-04-13 10:26 | CM ---
Chart reviewed. Patient is independent of ADLS with frequent falls at home, [place], 3 HALI, ambulates with a SPC and also has a RW. PT/OT evaluation recommending SNF. Referrals sent to [facility], [facility],
[facility]. Waiting on bed availability. Follow up phone calls made again today, waiting for return phone calls. CM to follow
--- NOTE | 2024-04-13 11:52 | PTCARENOTE ---
Pt is AOx3, confused at times. Assist x1 OOB with walker. SR on tele monitor, VSS. Bed and chair alarm on and audible. Daughter at bedside. Call mcgill within reach.
--- NOTE | 2024-04-13 12:54 | CM ---
Patient accepted to [facility], family and patient agreeable. Authorization obtained from Marvin at [facility], auth# [id number] 04/13-04/18 NRD 04/18
--- NOTE | 2024-04-13 13:10 | W.PN.UPDATE ---
Update Note
Progress Note Update
I saw and evaluated the patient. I reviewed the resident�s note and agree with findings and plan as documented in the resident�s note.
No new complaints.
Gen: NAD, AAOx3.
Eyes: EOMI, PERRLA, no scleral icterus.
Neck: supple.
CV: continues to remain RRR, +S1/S2, no m/r/g.
Resp: continues to remain CTAB, no rales, wheezes, or rhonchi.
Abd: continues to remain +BS, soft, NT, ND
Skin: No rashes.
Neuro: CN 2-12 intact, non-focal.
Psych: Normal mood and affect.
CT brain: No acute intracranial abnormalities. Old 9 mm lacunar infarct involving the neck of the caudate and genu of the internal capsule on the right. Moderate diffuse cortical atrophy with moderate nonspecific white matter changes.
CXR: No acute cardiopulmonary process.
LHC:
1. Successful percutaneous coronary artery intervention of an eccentric 70 to 75% stenosis in the saphenous vein graft with IVUS guidance and utilization with a spider distal embolic protection device with one 3.0 x 15 mm Medtronic [place] drug-eluting
stent, postdilated with a 3.25 x 12 mm NC balloon at 16 cristo with an excellent angiographic result.
2. Significant [place] coronary artery disease.
3. Patent JEFFERSON to LAD with moderate to severe diffuse distal/apical LAD disease, not a PCI target.
4. Normal LVEDP at 13 mmHg.
Echo:
1. Left ventricle normal size with mild concentric LVH. 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
2. Right ventricle: Normal
3. Atria: Normal
4. Mitral valve: Mild mitral regurgitation
5. Aortic valve: Sclerotic. No aortic insufficiency
6. Tricuspid valve: Trace tricuspid regurgitation with estimated pulmonary
artery systolic pressures of 15-20 mmHg
7. When compared to the most recent echocardiogram from 11/24/2019, a new
regional wall motion abnormality is noted at the left ventricular apex which is
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 The estimated ejection fraction is 40-45% by
Russ's method of disc and was estimated near 50% on the prior study.
Acute Influenza A infection:
-cont Tamiflu x 5 days
-acute rhabdomyolysis due to acute influenza A infection, CPK has improved with IV fluids
-Acute transaminitis due to acute rhabdomyolysis, resolved.
Acute NSTEMI:
-h/o CAD s/p PCI x 5 and CABG
-trop peaked at 1.360, downtrending
-Echo above with apical WMA, cath 04/11/24 as above, stent placed to saphenous graft
-was on Eliquis, then on heparin gtt, now back on Eliquis
-cards following
-cont ASA (for 1 week)/Coreg/statin/Plavix
Other problems:
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
h/o CVA: cont statin/Eliquis
DNR/Eliquis
Remains medically cleared for discharge since 04/12/24. Case management aware.
Total time spent on d/c = 32 min. This included today's physical exam, progress note, review of laboratory and diagnostic data, preparation of discharge documents and prescriptions, and discussions about the pt's hospital course and discharge plan
with the patient and other medical imaging tech involved in the patient's care.
[2024-04-13 13:13] LABS: Glucose - Point of Care 194 mg/dl (70-99)
--- NOTE | 2024-04-13 13:55 | W.DCSUMMARY ---
Discharge Summary
Discharge Data
Date of Admission: 04/07/24
Date of Discharge: 04/13/24
-
Pending Results: No
Hospital Course
Brief hospital course; This is an 83-year-old female with past medical history of coronary artery disease and CABG with JEFFERSON-LAD, [id number], hypertension, hyperlipidemia, paroxysmal atrial fibrillation who presented to ER 04/07/2024
complaining of generalized weakness and unsteady gait. On presentation to the ED, patient tested positive for influenza A virus. Laboratory showed elevated LFTs and a CK level of 9753. Evaluation of chest x-ray in the ED showed no acute
cardiopulmonary process.
Sepsis secondary to influenza A virus
Patient started on Tamiflu, which was renally dosed. In addition he was started on IV fluids. Lactate level was normal. He completed a 7-day course of Tamiflu. He had no persistent fevers, normal white counts throughout the course of his
hospital stay. Rhabdomyolysis on presentation was secondary to the influenza A virus. His LFTs trended down, CK level trended down.
Acute NSTEMI
On presentation to the ED, his troponin was elevated although with no complaints of chest discomfort. Cardiology was consulted and an echocardiogram was obtained. Echocardiogram showed new severely hypokinetic�akinetic apical gutiérrez with an
estimated ejection fraction of 40-45%. ECG with ant-lat ischemia. His troponin peaked at approximately 1.360. Given his new wall motion abnormality, decision was made for a left heart catheterization. Catheterization was done 05/01/2024 as below,
and a stent was placed to saphenous graft. Final recommendations per cardiology was to start patient on aspirin 81 mg for a day for 1 week, clopidogrel 75 mg daily, high intensity statin atorvastatin 80 mg daily, ezetimibe 10 mg daily and continue
Eliquis 5 mg twice daily. Losartan was added to his regimen and dapagliflozin 10 mg a day.
CT brain: No acute intracranial abnormalities. Old 9 mm lacunar infarct involving the neck of the caudate and genu of the internal capsule on the right. Moderate diffuse cortical atrophy with moderate nonspecific white matter changes.
CXR: No acute cardiopulmonary process.
LHC:
1. Successful percutaneous coronary artery intervention of an eccentric 70 to 75% stenosis in the saphenous vein graft with IVUS guidance and utilization with a spider distal embolic protection device with one 3.0 x 15 mm Medtronic [place] drug-eluting
stent, postdilated with a 3.25 x 12 mm NC balloon at 16 cristo with an excellent angiographic result.
2. Significant [place] coronary artery disease.
3. Patent JEFFERSON to LAD with moderate to severe diffuse distal/apical LAD disease, not a PCI target.
4. Normal LVEDP at 13 mmHg.
Echo:
1. Left ventricle normal size with mild concentric LVH. 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
2. Right ventricle: Normal
3. Atria: Normal
4. Mitral valve: Mild mitral regurgitation
5. Aortic valve: Sclerotic. No aortic insufficiency
6. Tricuspid valve: Trace tricuspid regurgitation with estimated pulmonary
artery systolic pressures of 15-20 mmHg
7. When compared to the most recent echocardiogram from 11/24/2019, a new
regional wall motion abnormality is noted at the left ventricular apex which is
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 The estimated ejection fraction is 40-45% by
Russ's method of disc and was estimated near 50% on the prior study.
Discharge Plan
-
Patient Disposition: Long Term/SNF
Discharge Diagnosis/Procedures: NSTEMI, s/p angioplasty and stent to vein graft-Obtuse Marginal artery
Sepsis secondary to influenza virus
Rhabdomyolysis secondary to influenza virus
Paroxysmal atrial fibrillation
Condition: Fair
Diet: Low Cholesterol and Diabetic, Carb Controlled
Driving Restrictions: Not until seen by your Dr
Other Services: Cardiac Rehab
Stand Alone Forms: DC Instructions- Cath/EP Lab
Referrals:
Reece Fong [Outside]
Brenda Siddiqui PA-C [Specified Professional Personl] - 05/03/24 8:40 am (Cardiology followup appointment)
Walter Goodman MD [Family Provider] - in less than 1 week
Additional Discharge Medication Instructions: Aspirin 81 mg a day for 1 week from 04/11 to 04/18, then stop
Ezetimibe 10mg a day
Clopidogrel 75 mg a day (new)
Losartan 25 mg a day (new)
Dapagliflozin 10 mg a day (new)
Prescriptions:
New
losartan 25 mg Tablet
25 mg PO DAILY Qty: 30 0RF
dapagliflozin propanediol 10 mg Tablet
10 mg PO DAILY Qty: 30 0RF
clopidogrel 75 mg Tablet
75 mg PO DAILY Qty: 30 0RF
aspirin 81 mg Tablet,Chewable
81 mg PO DAILY Qty: 5 0RF
ezetimibe 10 mg tablet
10 mg PO DAILY Qty: 30 0RF
Continued
glyburide 5 MG tablet
5 mg PO BID@0800,1700
atorvastatin 80 mg tablet
80 mg PO DAILY
carvedilol 6.25 mg tablet
6.25 mg PO BID
metformin 500 mg tablet extended release 24 hr
500 mg PO BID@0800,1700
Eliquis 5 mg tablet
5 mg PO BID
fexofenadine 60 mg Tablet
60 mg PO DAILY
therapeutic multivitamin Tablet
1 tab PO DAILY
Brain Supplement
1 dose PO DAILY
bisacodyl [Dulcolax (bisacodyl)] 5 mg Tablet,Delayed Release (Dr/Ec)
10 mg PO DAILYPRN PRN (Reason: constipation)
Discontinued
Trulicity 4.5 mg/0.5 mL pen injector
4.5 mg SC TU
Discharge Orders:
Discharge Patient (As Directed); Ordered 04/13/24
Ordered By: Daquan Mcfadden
Care Plan Goals
Care Plan Goals:
Problem: Readiness for enhanced knowledge related to diagnosis and treatment plan
Goal: Understand your diagnosis and treatment plan needs, including medications if applicable.
Instructions: Know your diagnosis, underlying causes and treatment plan options, including medications if applicable. Consult with your health care team to learn about your diagnosis and treatment plan, including medications if applicable.
Discharge Date and Time
Print Language: TELUGU
[2024-04-13] MEDS: NOVOLOG FLEXPEN-LOW RESISTANCE 2 UNITS SC (17:07)
[2024-04-13 17:09] LABS: Glucose - Point of Care 205 mg/dl (70-99)
--- NOTE | 2024-04-13 19:29 | PTCARENOTE ---
Pt [facility] by [facility] was taken via stretcher. Vital signs taken just prior to discharge. IV and telemetry pack removed by previous nurse.
== END 2024-04-13 19:30 | DRG 853 ==
LOC: IVU 13:24
PROVIDERS: Emergency Medicine; Hospitalist; Internal Medicine Interventional Cardiology; Nurse Practitioner; Physician Assistant Medical; Student in an Organized Health Care Education/Training Program; ADMITTING PHYSICIAN Student in an Organized Health Care Education/Training Program; ATTENDING PHYSICIAN Internal Medicine; EMERGENCY PHYSICIAN Emergency Medicine; FAMILY PHYSICIAN Family Medicine; OTHER PHYSICIAN Internal Medicine Interventional Cardiology
PROC: 027034Z Dilation of Coronary Artery, One Artery with Drug-eluting Intraluminal Device, Percutaneous Approach (ICD-10-PCS; 2024-04-11)
PROC: B2111ZZ Fluoroscopy of Multiple Coronary Arteries using Low Osmolar Contrast (ICD-10-PCS; 2024-04-11)
PROC: 4A023N7 Measurement of Cardiac Sampling and Pressure, Left Heart, Percutaneous Approach (ICD-10-PCS; 2024-04-11)
PROC: B240ZZ3 Ultrasonography of Single Coronary Artery, Intravascular (ICD-10-PCS; 2024-04-11)
PROC: B2181ZZ Fluoroscopy of Left Internal Mammary Bypass Graft using Low Osmolar Contrast (ICD-10-PCS; 2024-04-11)
PROC: B2131ZZ Fluoroscopy of Multiple Coronary Artery Bypass Grafts using Low Osmolar Contrast (ICD-10-PCS; 2024-04-11)
DX: A41.89 Other specified sepsis (principal); I21.4 Non-ST elevation (NSTEMI) myocardial infarction; M62.82 Rhabdomyolysis; I25.810 Atherosclerosis of coronary artery bypass graft(s) without angina pectoris; J10.1 Influenza due to other identified influenza virus with other respiratory manifestations; I10 Essential (primary) hypertension; I25.10 Atherosclerotic heart disease of native coronary artery without angina pectoris; E78.5 Hyperlipidemia, unspecified; Z11.52 Encounter for screening for COVID-19; I35.8 Other nonrheumatic aortic valve disorders; I48.0 Paroxysmal atrial fibrillation; E11.65 Type 2 diabetes mellitus with hyperglycemia; Z79.84 Long term (current) use of oral hypoglycemic drugs; Z79.01 Long term (current) use of anticoagulants; K59.00 Constipation, unspecified; Z86.73 Personal history of transient ischemic attack (TIA), and cerebral infarction without residual deficits; Z85.46 Personal history of malignant neoplasm of prostate; Z91.81 History of falling; Z79.899 Other long term (current) drug therapy; Z79.82 Long term (current) use of aspirin; Z66 Do not resuscitate; Z87.891 Personal history of nicotine dependence; Z90.79 Acquired absence of other genital organ(s); I25.5 Ischemic cardiomyopathy
CPT/HCPCS: 70450; 71046; 76937; 80053; 80061; 80306; 81003; 81015; 82248; 82550; 82570; 82962; 83036; 83605; 83735; 84156; 84484; 85025; 85027; 85347; 85730; 87086; 87502; 87811; 92978; 93005; 93306; 93459; 96360; 96372; 97116; 97162; 97166; 97530; 97535; 99152; 99153; 99291; C1725; C1753; C1769; C1874; C1884; C1894; C9604; Q9967

== ENCOUNTER → 2024-06-14 09:23 | Outpatient (REF) | payer OTHER, SELFPAY | LOC: RCS 09:23 | PROVIDERS: ATTENDING PHYSICIAN Physician Assistant; FAMILY PHYSICIAN Family Medicine | DX: Z95.1 Presence of aortocoronary bypass graft (principal); I25.10 Atherosclerotic heart disease of native coronary artery without angina pectoris; Z98.890 Other specified postprocedural states; I42.8 Other cardiomyopathies | CPT/HCPCS: 93306 ==